=== PATIENT | female | born 1975 | race Caucasian/White ===

== ENCOUNTER 2020-07-09 16:39 | Outpatient (CLI) | payer BC, SELFPAY ==
--- NOTE | ~2020-07-09 | MM_ITS ---
EXAMINATION: MM screening [facility] BI w aida HISTORY: Screening mammogram TECHNIQUE: Craniocaudal and mediolateral oblique 3-D tomosynthesis images were obtained and synthetic 2-D images were generated. CAD analysis was submitted and interpreted. COMPARISON: 06/20/2019, 06/14/2018, 06/09/2017 BREAST PARENCHYMAL COMPOSITION: There are scattered areas of fibroglandular density. FINDINGS: RIGHT BREAST: Asymmetry is present in the middle third of the upper breast on the mediolateral obliqu e view. In addition, there are small subareolar masses. LEFT BREAST: There is no evidence of suspicious mass, calcification, or architectural distortion to s uggest malignancy. There has been no significant interval change. IMPRESSION: 1. Right breast findings as described above. 2. Additional mammographic views and possible breast ultrasound are recommended. BI-RADS Category 0: Incomplete: Needs additional imaging evaluation. Reviewed, dictated and finalized at location A. OPERATIONS MANAGER IMPRESSION: 1. Right breast findings as described above. 2. Additional mammographic views and possible breast ultrasound are recommended . BI-RADS Category 0: Incomplete: Needs additional imaging evaluation.
== END 2020-07-09 16:40 | disposition home or self-care (01) ==
LOC: ANHIMG 16:42
PROVIDERS: PCP Family Medicine; Visit Provider Obstetrics & Gynecology
DX: Z12.31 Encounter for screening mammogram for malignant neoplasm of breast (principal); R92.8 Other abnormal and inconclusive findings on diagnostic imaging of breast
CPT/HCPCS: 77063; 77067

== ENCOUNTER 2020-09-29 13:41 | Outpatient (CLI) | payer BC, SELFPAY ==
--- NOTE | ~2020-09-29 | MM_ITS ---
EXAMINATION: MM diagnostic mammo unilat RT HISTORY: Upper and middle third right breast mammographic asymmetry on screening MLO view of 07/09/20 20 TECHNIQUE: Additional 3-D tomosynthesis images of the right breast were performed and synthetic 2-D i mages were generated. CAD analysis was submitted and interpreted. COMPARISON: 07/09/2020bilateral digital screening mammogram FINDINGS: No reproducible mass or architectural distortion. No malignant calcification, skin thickeni ng or retraction. IMPRESSION: 1. No mammographic evidence of malignancy 2. Routine annual mammographic screening is recommended BI-RADS Category 1: Negative Reviewed, dictated and finalized at location A. SER SALES
== END 2020-09-29 13:42 | disposition home or self-care (01) ==
LOC: ANHIMG 13:42
PROVIDERS: PCP Family Medicine; Visit Provider Obstetrics & Gynecology
DX: R92.8 Other abnormal and inconclusive findings on diagnostic imaging of breast (principal)
CPT/HCPCS: 77065

== ENCOUNTER 2021-10-02 09:19 | Outpatient (CLI) | payer BC, SELFPAY ==
--- NOTE | ~2021-10-02 | MM_ITS ---
EXAMINATION: MM screening [place] BI w aida HISTORY: Screening TECHNIQUE: Craniocaudal and mediolateral oblique 3-D tomosynthesis images were obtained and synthetic 2-D images were generated. CAD analysis was submitted and interpreted. COMPARISON: Comparison to multiple prior studies sequentially, with oldest reviewed study dated 05/25. BREAST PARENCHYMAL COMPOSITION: Breast composition is almost entirely fatty FINDINGS: There is focal asymmetry superiorly on the right breast on MLO view. The left breast is sta ble without evidence for malignancy. IMPRESSION: 1. Focal asymmetry in the upper aspect of the right breast. 2. Additional mammographic views and possible breast ultrasound are recommended. BI-RADS Category 0: Incomplete: Needs additional imaging evaluation. Reviewed, dictated and finalized at location A. Y TINTER MAKER IMPRESSION: 1. Focal asymmetry in the upper aspect of the right breast. 2. Additional mammographic views and possible breast ultrasound are recommended . BI-RADS Category 0: Incomplete: Needs additional imaging evaluation.
== END 2021-10-02 09:20 | disposition home or self-care (01) ==
LOC: ANHIMG 09:21
PROVIDERS: PCP Family Medicine; Visit Provider Obstetrics & Gynecology
DX: Z12.31 Encounter for screening mammogram for malignant neoplasm of breast (principal); R92.8 Other abnormal and inconclusive findings on diagnostic imaging of breast
CPT/HCPCS: 77063; 77067

== ENCOUNTER 2021-10-22 12:14 | Outpatient (CLI) | payer BC, SELFPAY ==
--- NOTE | ~2021-10-22 | MM_ITS ---
EXAMINATION: MM diagnostic geo RT w aida HISTORY: Right breast asymmetry on screening mammogram TECHNIQUE: Additional 3-D tomosynthesis images of the right breast were performed and synthetic 2-D i mages were generated. CAD analysis was submitted and interpreted. COMPARISON: 10/02/2021,09/29/2020, 07/09/2020 FINDINGS: There is a return to baseline fibroglandular appearance with spot compression of the right breast in the area questioned on screening mammogram. IMPRESSION: 1. No mammographic evidence of malignancy. 2. Recommend routine screening mammography in one year. BI-RADS Category 1: Negative Reviewed, dictated and finalized at location A.
== END 2021-10-22 12:15 | disposition home or self-care (01) ==
PROVIDERS: PCP Family Medicine; Visit Provider Obstetrics & Gynecology
DX: R92.8 Other abnormal and inconclusive findings on diagnostic imaging of breast (principal); N64.89 Other specified disorders of breast
CPT/HCPCS: 77061; 77065; G0279

== ENCOUNTER 2024-09-10 12:31 | Emergency (ER) | payer OTHER, SELFPAY ==
--- NOTE | ~2024-09-10 | US_ITS ---
EXAMINATION: US transvaginal DATE: 09/10/2024 18:35 INDICATION: Lower abdominal pain, concern for torsion TECHNIQUE: Multiple transabdominal and endovaginal sonographic images of the pelvis were obtained. COMPARISON: 01/07/[address] abdomen pelvis 09/10/2024. FINDINGS: Uterus: 9.7 x 3.8 x 5.9 cm. Endometrial complex measures 3 mm. Right Ovary: 2.6 x 1.4 x 1.4 cm. Vascular flow is present. No adnexal mass Left Ovary: 3.0 x 1.2 x 2.3 cm. Vascular flow is present. No adnexal mass. There is no free fluid in the pelvis. IMPRESSION: Normal pelvic sonogram findings. Reviewed, dictated and finalized at location K. ING OPERATOR
--- NOTE | ~2024-09-10 | CT_ITS ---
EXAMINATION: CT abdomen pelvis w con DATE: 09/10/2024 15:56 INDICATION: Low abdominal pain. Nausea, vomiting, and diarrhea. TECHNIQUE: Computed tomography (CT) of the abdomen and pelvis was performed with 100 mL Omnipaque 350 intravenous contrast. Automated exposure control and iterative reconstruction technique were employe d. The dose-length product was 1503.41 mGy-cm. COMPARISON: CT abdomen and pelvis 01/05/2016 FINDINGS: The visualized portions of lung bases demonstrate mild atelectasis on the right. In the med ial basilar left lower lobe, there is a geographic area of cystic lung disease with reticular opaciti es and groundglass and airspace opacities. No pleural effusion. The heart size is normal. No pericard ial effusion. The liver, spleen, pancreas, adrenal glands, and right kidney are normal. There is a 5 mm cyst in left kidney. There are no dilated loops of bowel. There is liquid stool in the colon corre lating with the patient's symptom of diarrhea. The appendix is normal. There are no pathologically en larged lymph nodes. There is no free intraperitoneal fluid. There is moderate thoracic spondylosis an d mild lumbar spondylosis. IMPRESSION: 1. 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 The differential diagnosis includes sequestration and congenital cystic adenomatoid malformation. Reviewed, dictated and finalized at location A. MING PO[employer] SALESPERSON IMPRESSION: 1. 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 The differenti al diagnosis includes sequestration and congenital cystic adenomatoid malformat ion.
[2024-09-10 12:33] VITALS: BP 163/90; PULSE 90; RESP 15; TEMP 36.6; O2SAT 99
--- NOTE | 2024-09-10 14:01 | ED.ABDPAIN ---
HPI - Abdominal Pain General Chief Complaint: Abdominal Pain <GIANFRANCO Jordan Last Filed: 09/10/24 15:14> Stated Complaint: abd pain <GIANFRANCO Jordan Last Filed: 09/10/24 15:14> Time Seen by Provider: 09/10/24 14:01 <GIANFRANCO Jordan Last Filed: 09/10/24 15:14> Focused HPI: Patient is a 49 y/o female who presents to the ED with c/o lower abdominal pain. Patient reports having pain throughout her lower abdomen, worse in her left lower quadrant since this morning. States pain began somewhat suddenly around 10:00 a.m. States she feels as though her insides are going to fall out. Has not taken anything for pain. Reports N/V/D. Denies rectal bleeding, melena. Denies fevers. Denies cough/ cold sx's. States she has not been feeling well since last week. Was on her cycle and states cramping and bleeding were worse than usual. Notes she was cleaning her bathroom naked last week and passed a large blood clot onto the floor. States cycle has since ended. Denies any further abnormal bleeding. Is scheduled to see OBGYN next month. GENERAL: Well-appearing, well-nourished, and in no acute distress. HEAD: Normocephalic, atraumatic. CHEST: Clear to auscultation. ?No respiratory distress. HEART: Regular rate and rhythm.? ABD: Mild lower abdominal tenderness. No rebound. Normoactive BS. NEURO: ?Alert and oriented x3. Patient screened in triage and initial orders placed.? ?Additional care and disposition to be based upon?diagnostic testing and treatment. <GIANFRANCO Jordan Last Filed: 09/10/24 15:14> Source: patient <GIANFRANCO Jordan Last Filed: 09/10/24 15:14> Mode of arrival: ambulatory <GIANFRANCO Jordan Last Filed: 09/10/24 15:14> Limitations: no limitations <GIANFRANCO Jordan Last Filed: 09/10/24 15:14> History of Present Illness HPI narrative: I agree with the above HPI <Jermaine Cook MD - Last Filed: 09/10/24 21:27> Related Data Allergies/Adverse Reactions: Allergies Allergy/AdvReac Type Severity Reaction Status Date / Time clindamycin Allergy Hives Verified 09/10/24 12:38 <Page Horn PA-C - Last Filed: 09/10/24 15:14> Review of Systems Review of Systems: All systems reviewed & are unremarkable except as noted in HPI and below <Jermaine Cook MD - Last Filed: 09/10/24 21:27> PMFSH Family History Family History: Family History (System 06/11/20 @ 16:34 by Bridget Alan) Father Hypertension Family history of heart disease in male family member before age 55 Mother Hypertension Grandparent Hypertension Malignant neoplasm of prostate Family history of malignant neoplasm of breast Diabetes mellitus Sibling Family history of seizure disorder <Page Horn PA-C - Last Filed: 09/10/24 15:14> Social History Social History: Social History (System 06/11/20 @ 16:34 by Bridget Alan) Smoking status: Never smoker Alcohol intake: current <Page Horn PA-C - Last Filed: 09/10/24 15:14> Exam Narrative: APPEARANCE: Well appearing, no pain, no distress, well-nourished. HEAD: normocephalic, atraumatic. EYES: PERRLA/EOMI, conjunctivae clear. NOSE: Normal no drainage EARS:TMS clear with good light reflex. THROAT: Pharynx clear, no exudate. NECK: Supple. No adenopathy, no masses. RESPIRATORY: Airway patent, respirations nonlabored. Clear to auscultation bilaterally, no rales, rhonchi, wheezing. CARDIOVASCULAR: Regular rate and rhythm without murmurs rubs or gallops. ABDOMINAL: Diffuse lower abdominal tenderness to palpation MUSCULOSKELETAL: Moves all extremities. Strength/ROM intact, No edema, No calf tenderness. NEURO: Alert. Cranial nerves II through XII intact. Good gait. Good coordination SKIN: Warm, dry. Normal Color <Jermaine Cook MD - Last Filed: 09/10/24 21:27> Course Vital Signs Vital signs: Vital Signs Temperature 97.8 F 09/10/24 12:33 Pulse Rate 90 09/10/24 12:33 Respiratory Rate 15 09/10/24 12:33 Blood Pressure 163/90 H 09/10/24 12:33 Pulse Oximetry 99 09/10/24 12:33 Oxygen Delivery Room Air 09/10/24 12:33 Temperature 97.8 F 09/10/24 12:33 Pulse Rate 103 H 09/10/24 19:49 Respiratory Rate 16 09/10/24 19:49 Blood Pressure 133/86 09/10/24 19:49 Pulse Oximetry 98 09/10/24 19:49 Oxygen Delivery Room Air 09/10/24 12:33 <Page Horn PA-C - Last Filed: 09/10/24 15:14> Vital Signs Temperature 97.8 F 09/10/24 12:33 Pulse Rate 90 09/10/24 12:33 Respiratory Rate 15 09/10/24 12:33 Blood Pressure 163/90 H 09/10/24 12:33 Pulse Oximetry 99 09/10/24 12:33 Oxygen Delivery Room Air 09/10/24 12:33 Temperature 97.8 F 09/10/24 12:33 Pulse Rate 103 H 09/10/24 19:49 Respiratory Rate 16 09/10/24 19:49 Blood Pressure 133/86 09/10/24 19:49 Pulse Oximetry 98 09/10/24 19:49 Oxygen Delivery Room Air 09/10/24 12:33 <Jermaine Cook MD - Last Filed: 09/10/24 21:27> MDM - Abdominal Pain MDM Narrative Medical decision making narrative: MSE by OUSMANE in triage. <Page Horn PA-C - Last Filed: 09/10/24 15:14> MSE by OUSMANE in triage. 49-year-old female presented to the emergency department for evaluation for lower abdominal pain associated nausea vomiting diarrhea. Patient is currently afebrile with a leukocytosis of 11.2 and hemoglobin of 14.5. Patient has no acute abnormalities on her CMP with a negative lipase. UA was negative for infection. CT and pelvis did show evidence of a diarrheal illness, due to patient having specific left lower quadrant pain associated with her menstrual cycle ultrasound was ordered to rule out torsion and pelvic ultrasound was negative. Patient did feel improved after treatment IV fluids, antinausea medications and medications for pain control. Patient will be discharged home with nausea medication and instructions to follow a clear liquid diet. <Jermaine Cook MD - Last Filed: 09/10/24 21:27> Differential Diagnosis Differential diagnosis: Likely abdominal pain, acute appendicitis, constipation, diverticulitis, endometriosis, gastroenteritis, pancreatitis and small bowel obstruction <Jermaine Cook MD - Last Filed: 09/10/24 21:27> Lab Data Attestation: I reviewed the patient's lab results. <Jermaine Cook MD - Last Filed: 09/10/24 21:27> Result diagrams: 09/10/24 15:40 09/10/24 15:52 <Page Horn PA-C - Last Filed: 09/10/24 15:14> Labs: Lab Results 09/10/24 09/10/24 Range/Units 15:40 15:52 WBC 11.2 H (4.5-10.0) K/mm3 RBC 4.94 (4.2-5.4) M/mm3 Hgb 14.5 (12.0-15.0) g/dL Hct 43.2 (37.0-47.0) % MCV 87.4 (80-100) fl MCH 29.4 (26-34) pg MCHC 33.6 (32-36) g/dl RDW 14.0 (11.5-14.5) % Plt Count 280 (150-375) k/mm3 MPV 10.4 (7.4-10.4) fl Immature Gran % (Auto) 0.4 (0-0.5) % Neut % (Auto) 89.9 H (45.5-73.1) % Lymph % (Auto) 5.3 L (18.3-44.2) % Carbon % (Auto) 3.9 (2.6-8.5) % Eos % (Auto) 0.2 (0-4.4) % Baso % (Auto) 0.3 (0.2-1.2) % Lymph # (Auto) 0.59 L (0.9-3.2) K/mm3 Carbon # (Auto) 0.4 (0.1-0.6) K/mm3 Eos # (Auto) 0.0 (0-0.3) K/mm3 Baso # (Auto) 0.0 (0.0-0.1) K/mm3 Abs Immat Gran (auto) 0.04 H (0.00-0.031) K/mm3 Absolute Neuts (auto) 10.1 H (1.3-6.7) K/mm3 Absolute Nucleated RBC 0.000 (0.0-0.012) K/mm3 Nucleated RBC % 0.0 (0.0-0.2) % Sodium 137 (137-145) mmol/L Potassium 4.2 (3.4-5.0) mmol/L Chloride 102 (98-107) mmol/L Carbon Dioxide 25 (22-30) mmol/L Anion Gap 10 (4-12) mmol/L BUN 16 (7-17) mg/dL Creatinine 0.68 L 0.80 (0.7-1.0) mg/dL Estim Creat Clear Calc 108 93 ml/min Estimated GFR > 60 > 60 (59 - ) Glucose 137 H (65-110) mg/dL Calcium 9.6 (8.4-10.2) mg/dL Total Bilirubin 0.9 (0.2-1.3) mg/dL AST 22 (14-36) U/L ALT 20 (6-35) U/L Alkaline Phosphatase 109 (38-126) U/L Total Protein 8.0 (6.3-8.2) g/dL Albumin 4.1 (3.5-5.1) g/dL Lipase 38 (23-300) U/L Urine Color Yellow (Yellow) Urine Appearance Clear (Clear) Urine pH 5.5 (5.0-9.0) Ur Specific Newborn 1.026 (1.001-1.035) Urine Protein Negative (Negative) mg/dL Urine Glucose (UA) Negative (Negative) mg/dL Urine Ketones Trace H (Negative) mg/dL Ur Blood (Man) Negative (Negative) Urine Nitrate Negative (Negative) Urine Bilirubin Negative (Negative) Urine Urobilinogen 0.2 (<2.0) mg/dL Leukocyte Esterase Rfl Negative (Negative) YASSINE/UL POC Urine HCG, Qual Negative (Negative) <Page Horn PA-C - Last Filed: 09/10/24 15:14> Lab Results 09/10/24 09/10/24 Range/Units 15:40 15:52 WBC 11.2 H (4.5-10.0) K/mm3 RBC 4.94 (4.2-5.4) M/mm3 Hgb 14.5 (12.0-15.0) g/dL Hct 43.2 (37.0-47.0) % MCV 87.4 (80-100) fl MCH 29.4 (26-34) pg MCHC 33.6 (32-36) g/dl RDW 14.0 (11.5-14.5) % Plt Count 280 (150-375) k/mm3 MPV 10.4 (7.4-10.4) fl Immature Gran % (Auto) 0.4 (0-0.5) % Neut % (Auto) 89.9 H (45.5-73.1) % Lymph % (Auto) 5.3 L (18.3-44.2) % Carbon % (Auto) 3.9 (2.6-8.5) % Eos % (Auto) 0.2 (0-4.4) % Baso % (Auto) 0.3 (0.2-1.2) % Lymph # (Auto) 0.59 L (0.9-3.2) K/mm3 Carbon # (Auto) 0.4 (0.1-0.6) K/mm3 Eos # (Auto) 0.0 (0-0.3) K/mm3 Baso # (Auto) 0.0 (0.0-0.1) K/mm3 Abs Immat Gran (auto) 0.04 H (0.00-0.031) K/mm3 Absolute Neuts (auto) 10.1 H (1.3-6.7) K/mm3 Absolute Nucleated RBC 0.000 (0.0-0.012) K/mm3 Nucleated RBC % 0.0 (0.0-0.2) % Sodium 137 (137-145) mmol/L Potassium 4.2 (3.4-5.0) mmol/L Chloride 102 (98-107) mmol/L Carbon Dioxide 25 (22-30) mmol/L Anion Gap 10 (4-12) mmol/L BUN 16 (7-17) mg/dL Creatinine 0.68 L 0.80 (0.7-1.0) mg/dL Estim Creat Clear Calc 108 93 ml/min Estimated GFR > 60 > 60 (59 - ) Glucose 137 H (65-110) mg/dL Calcium 9.6 (8.4-10.2) mg/dL Total Bilirubin 0.9 (0.2-1.3) mg/dL AST 22 (14-36) U/L ALT 20 (6-35) U/L Alkaline Phosphatase 109 (38-126) U/L Total Protein 8.0 (6.3-8.2) g/dL Albumin 4.1 (3.5-5.1) g/dL Lipase 38 (23-300) U/L Urine Color Yellow (Yellow) Urine Appearance Clear (Clear) Urine pH 5.5 (5.0-9.0) Ur Specific Newborn 1.026 (1.001-1.035) Urine Protein Negative (Negative) mg/dL Urine Glucose (UA) Negative (Negative) mg/dL Urine Ketones Trace H (Negative) mg/dL Ur Blood (Man) Negative (Negative) Urine Nitrate Negative (Negative) Urine Bilirubin Negative (Negative) Urine Urobilinogen 0.2 (<2.0) mg/dL Leukocyte Esterase Rfl Negative (Negative) YASSINE/UL POC Urine HCG, Qual Negative (Negative) <Jermaine Cook MD - Last Filed: 09/10/24 21:27> Imaging Data Radiologist's impression: ITS Impressions Abdomen/Pelvis CT 09/10/24 15:58 IMPRESSION: 1. 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 The differential diagnosis includes sequestration and congenital cystic adenomatoid malformation. Transvaginal US 09/10/24 19:01 IMPRESSION: Normal pelvic sonogram findings. <Page Horn PA-C - Last Filed: 09/10/24 15:14> ITS Impressions Abdomen/Pelvis CT 09/10/24 15:58 IMPRESSION: 1. 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 The differential diagnosis includes sequestration and congenital cystic adenomatoid malformation. Transvaginal US 09/10/24 19:01 IMPRESSION: Normal pelvic sonogram findings. <Jermaine Cook MD - Last Filed: 09/10/24 21:27> Discharge Plan Discharge Clinical Impression: Abdominal pain <GIANFRANCO Jordan Last Filed: 09/10/24 15:14> Patient Disposition: Home, Self-Care <GIANFRANCO Jordan Last Filed: 09/10/24 15:14> Condition: Stable <GIANFRANCO Jordan Last Filed: 09/10/24 15:14> Instructions: Antibiotic Form, Clear Liquid Diet (ED), Abdominal Pain (ED) <GIANFRANCO Jordan Last Filed: 09/10/24 15:14> Additional Instructions: Tylenol and ibuprofen for pain control. Clear liquid diet the next 1-3 days. Zofran as needed for nausea control. Have close follow-up with primary care physician. If you have any worsening symptoms then please call or return to the emergency department. <GIANFRANCO Jordan Last Filed: 09/10/24 15:14> Patient Language: Kenyan <GIANFRANCO Jordan Last Filed: 09/10/24 15:14> Prescriptions: New ondansetron 4 mg tablet,disintegrating 4 mg PO Q8H PRN (Reason: nausea and vomiting) Qty: 14 0RF No Action norethindrone-e.estradiol-iron [June FE 08/13 (28)] 1 mg-20 mcg (21)/75 mg (7) tablet 1 tablet PO DAILY Qty: 28 2RF <GIANFRANCO Jordan Last Filed: 09/10/24 15:14> Follow-up/Referrals: Jensen,Elizabeth Pandya MD [Primary Care Provider] - <GIANFRANCO Jordan Last Filed: 09/10/24 15:14>
--- OUTSIDE RECORDS SUMMARY | 2024-09-10 14:54 | XMS_ITS | Clinical Summary ---
Author Organization [facility] Address [address] [place] [id number] Care Team Providers Care Licensed Final Expense Agents Name Role Phone Christian Marquez NP Primary Care Provider Allergies Active Allergy Reactions Criticality Noted Date Comments Clindamycin Hives 04/03/2024 Medications gabapentin (NEURONTIN) 100 MG capsule Take 1 capsule (100 mg total) by mouth nightly at bedtime. Active sertraline (ZOLOFT) 100 MG tablet Take 1.5 tablets (150 mg total) by mouth daily. Active loratadine (CLARITIN) 10 MG tablet Take 1 tablet (10 mg total) by mouth daily as needed. Active losartan-hydroC HLOROthiazide (HYZAAR) 100-25 MG tablet Take 1 tablet by mouth daily. Active metoprolol succinate ER (TOPROL-XL) 50 MG 24 hr tablet Take 1 tablet (50 mg total) by mouth daily. Active vitamin D3, cholecalciferol , 125 mcg capsule Take 1 capsule (125 mcg total) by mouth daily. Active Multiple Vitamin (MULTIVITAMIN ADULT OR) Active Cyanocobalamin (VITAMIN B-12 OR) Active Active Problems Problem Noted Date Diagnosed Date Essential hypertension 04/03/2024 Obstructive sleep apnea syndrome 04/03/2024 Overview (04/03/2024): on cpap Gastroesophageal reflux disease 09/11/2019 Family History Medical History Relation Comments Arthritis Father Heart Disease Father Arthritis Mother Diabetes Mother Hypertension Mother Relation Status Comments Father Mother Social History Tobacco Use Types Packs/Day Years Used Date Smoking Tobacco: Never Smokeless Tobacco: Never Tobacco Cessation:Counseling Given: No Alcohol Use Standard Drinks/Week Comments Not Currently 0 (1 standard drink = 0.6 oz pur e alcohol) PHQ-2 Answer Date Recorded Patient Health Questionnaire-2 Score 2 04/03/2024 Comments Unknown Sex and Gender Information Value Date Recorded Sex Assigned at Not on file Legal Sex Female 8:26 PM CDT Gender Identity Not on file Sexual Orientation Not on file Last Filed Vital Signs Vital Sign Reading Time Taken Comments Blood Pressure 134/71 04/03/2024 10:03 AM CDT Pulse 56 04/03/2024 10:03 AM CDT Temperature 36.8 C (98.2 F) 04/03/2024 10:03 AM CDT Respiratory Rate - - Oxygen Saturation 98% 04/03/2024 10: 03 AM CDT Inhaled Oxygen Concentration - - Weight 114.2 kg (251 lb 12.8 oz) 2023 10:03 AM CDT Height 165.1 cm (5' 5 ) 04/03/2024 10:0 3 AM CDT Body Mass Index 41.9 04/03/2024 10:03 AM CDT Plan of Treatment Health Maintenance Due Date Last Done Comments Cervical Cancer Screening Pap Smear (Age 30 to 64) Every 3 Years 1975 Colorectal Cancer Screening Colonoscopy (10 Years) 1975 Annual Physical 1978 Hepatitis C 1993 Hepatitis B Vaccines (1 of 3 - 19+ 3-dose series) 1994 Cervical Cancer Screening Pap with HPV Testing (Age 30 to 64) Every 5 Years 2005 Cervical Cancer Screening with HPV 2005 Mammogram Screening 2015 COVID-19 Vaccine ( season) 2024 10/13/2021, 05/14/2021, 04/23/2021 Influenza Adult (#1) 2024 05/19/2023, 05/13/2022, 06/03/2020, Additional history exists PHQ-2 (Physician [place]) 07/25/2024 04/03/2024 PHQ-2 (Physician [place]) 04/03/2025 04/03/2024 DTaP, Tdap and Td Vaccines (2 - Td or Tdap) 11/27/2033 11/28/2023 Meningococcal B Vaccine Aged Out No l onger eligible based on patient's age to complete this topic Meningococcal Vaccine Aged Out No yuliana adrianne eligible based on patient's age to complete this topic Pneumococcal Vaccine: Pediatrics (0 to 5 Years) and At-Risk Patients (6 to 64 Years) Aged Out No longer eligible based on patient's age to complete this topic RSV Immunizations Under 20 Months Aged Out No longer eligible based on patient's age to complete this topic Insurance [facility] Care Teams Licensed Final Expense Agents Relationship Specialty Start Date End Date Christian Marquez NP [address] [place] [id number] PCP - General Nurse Practitioner Family 01/30/24
--- OUTSIDE RECORDS SUMMARY | 2024-09-10 14:54 | XMS_ITS | Data Portability ---
Author Organization [facility] [employer], Main Office Address [address] [place] [address] Assessment No assessment recorded. Plan of Treatment Reminders Order Date Submit Date Provider Last Modified By Organization Details Last Modified Time Details Appointments Any 30 2024 02:45P Payton Prabhakar NP Not available Not available Not available Lab measles igg Ab, titer, serum 2023 [email or web address] [place] [address] (Lab), [address] [place], [address], 05/16/2024 08:04:34 rubella Ab, titer, serum [address] [place] [address] (Lab), [address] [place], [address], 05/16/2024 08:04:34 rubella igg Ab, titer, serum 2023 [email or web address] [place] [address] (Lab), [address] [place], [address], 05/16/2024 08:04:34 Referral None recorded. Procedures None recorded. Surgeries None recorded. Imaging None recorded. Medication Orders mupirocin 2 % topical ointment 2023 024 [facility], [address] [facility], [place], [address], 07/02/2024 16:07:41 metoprolo l tartrate 50 mg tablet 2023 024 [facility], [address] [facility], [place], [address], 02/28/2024 11:21:48 Patient TargetsNo targets recorded. Patient InstructionsNo instructions recorded. Reason for Referral None Reported. Results Created Date Observation Date Name Description Value Unit Range Abnormal Flag Note LastModifiedBy Organization Detail LastModifiedTime 02/01/20 24 02/01/2024 nerve condu ction study /EMG, upper extre mity (PROC ) No observ ation record ed. [email or web address] [facility] [address] , [place], [address], 03/06/2024 11:10:07 02/01/20 24 02/01/2024 nerve condu ction study /EMG, upper extre mity (PROC ) No observ ation record ed. [email or web address] [facility] [address] , [place], [address], 02/03/2024 17:03:14 Result Notes None recorded. Problems Name Problem SNOMED Code Status Onset Date Resolution Date Notes Provider Name and Address Organization Details Recorded Time Plantar fasciitis of left foot 4319093709831 9101 Active 2022 Not Available [facility] 3 11:25:25 Bronchiect asis 04086019 Active 2017 Not Available [facility] 3 11:25:25 Cellulitis 605607260 Active Not Available [facility] 3 11:25:25 Computed tomography result abnormal 505234798 Active Not Available [facility] 3 11:25:25 Pain in both feet 1248889010214 9102 Active 2022 Not Available [facility] 3 11:25:25 Fracture of ankle 18764324 Active Not Available [facility] 3 11:25:25 Abnormal weight gain 217809357 Active Not Available [facility] 3 11:25:25 Body mass index 30+ - obesity 647229131 Active 2018 Not Available [facility] 3 11:25:25 Dry skin 85164183 Active Not Available [facility] 3 11:25:25 Pneumoniti s 731587147 Active Not Available [facility] 3 11:25:25 Abdominal pain 37022670 Active Not Available [facility] 3 11:25:25 Gastroesop hageal reflux disease 752020450 Active 2019 Not Available [facility] 3 11:25:25 Ankle pain 467179500 Active 2020 Not Available [facility] 3 11:25:25 Paresthesi a of foot 954824719 Active 2022 Not Available [facility] 3 11:25:25 Restless legs 84573971 Active Not Available [facility] 3 11:25:25 Rosacea 622940538 Active Not Available [facility] 3 11:25:25 Body mass index 40+ - severely obese 473044617 Active 2019 Not Available [facility] 3 11:25:25 Obesity 962916372 Active Not Available [facility] 3 11:25:25 Disorder of urinary bladder 10442923 Active Not Available [facility] 3 11:25:25 Ganglion cyst 623897849 Active Not Available [facility] 3 11:25:25 Disturbanc e in mood 33845697 Active Not Available [facility] 3 11:25:25 Essential hypertensi on 45825589 Active Not Available [facility] 3 11:25:25 Sleep apnea 73964109 Active on cpap Not Available [facility] 3 11:25:25 Obstructiv e sleep apnea syndrome 80397350 Active Not Available [facility] 3 11:25:25 Cyst of ovary 27171949 Active 2016 Not Available [facility] 3 11:25:25 Neck pain 53074584 Active Not Available [facility] 3 11:25:25 Fatigue 15531666 Active 2019 Not Available [facility] 3 11:25:25 Neuropathy 583038268 Active 2022 Not Available [facility] 3 11:25:25 Prediabete s 563201838 Active 2022 Not Available [facility] 3 11:25:25 Dizziness 510599031 Active 2022 Elizabeth Styles MD [address], [address], [place], [address] , [facility] 3 14:03:55 Thyroid function tests abnormal 929612859 Active 2022 Elizabeth Styles MD [address], [address], [place], [address] , [facility] 3 08:15:53 Paresthesi a of upper limb 66562078 Active 2023 PONCHO Morgan [address], [address], [place], [address] , [facility] 4 11:24:16 Palpitatio ns 26330956 Active 2023 PONCHO Morgan [address], [address], [place], [address] , [facility] 4 11:32:23 Tachycardi a 4683176 Active 2023 PONCHO Huber [address], [address], [place], [address] , [facility] 4 11:19:39 Hypertensi ve disorder 21828106 Active 2023 PONCHO Huber [address], [address], [place], [address] , [facility] 4 11:20:50 Bilateral carpal tunnel syndrome 9891608180706 9101 Active 2023 PONCHO Morgan [address], [address], [place], [address] , [facility] 4 11:10:44 Ulcer of nose 82573775 Active 2023 PONCHO Huber [address] [place] [address], [facility] [address], [place], [address] , [facility] [employer] 4 16:02:34 Problem Notes None recorded. Procedures Surgical History Date Name Laterality Status Provider Name and Address Organization Details Recorded Time 09/30/19 21 Most Recent Mammogram completed Not Available [facility] 09/22/2022 00:57:08 05/05/20 20 Date of Last Pap Smear completed Not Available [facility] 09/22/2022 00:57:08 01/04/20 18 release of trigger finger completed Not Available [facility] 09/22/2022 00:57:11 06/21/20 17 Cholecystectomy completed Not Available [facility] 09/22/2022 00:57:11 Mastoidectomy completed Not Available [facility] 09/22/2022 00:57:11 tonsilectomy/adeno ids completed Not Available [facility] 09/22/2022 00:57:11 Ear Tubes completed Not Available [facility] 09/22/2022 00:57:11 Imaging Results Imaging Date Name Status LastModified by Organiz ation Details LastModified Time 02/01/2024 nerve conduction study/EMG, upper extremity (PROC) completed [facility] _[facility]_[address] , [place], [address], 03/06/2024 11:10:07 02/01/2024 nerve conduction study/EMG, upper extremity (PROC) completed [email or web address] [facility]_[address] [place], [address], 02/03/2024 17:03:14 Procedure Notes None recorded. Medical Equipment None Reported. Allergies Allergen ID Allergen Name Allergen Category Reaction Reaction Severity Criticality Documentation Date Start Date Code Code System Note Provider Name and Address Organization Details Recorded Time 1784 clindamyc in Not available hives Not available Not available 09/22/2022 2582 RxNorm Not Available [facility] 3 01:15:28 Medications Name Sig Start Date Stop Date Status Note LastModified by Organization Details LastModified Time Prescript ion - Renewal active Not Available Not Available Not Available cyclobenz aprine 10 mg tablet Take 1 tablet twice a day by oral route at bedtime. active Not Available Not Available No t Available amoxicill in 500 mg capsule Take 1 capsule twice a day by oral route for 5 days. active Not Available Not Available No t Available doxycycli ne hyclate 100 mg capsule Take 1 capsule every day by oral route. 11/16 completed Not Available Not Available Not Available ropinirol e 1 mg tablet Take 1 tablet every day by oral route for 30 days. active Not Available Not Available No t Available clindamyc in HCl 300 mg capsule Take 1 capsule 3 times a day by oral route for 7 days. active Not Available Not Available No t Available ibuprofen 800 mg tablet TAKE 1 TABLET BY MOUTH EVERY 8 HOURS WITH FOOD NEEDED active Not Available Not Available No t Available metoprolo l succinate ER 50 mg tablet,ex tended release 24 hr TAKE 1 TABLET BY MOUTH ONCE DAILY 07/02 completed Not Available Not Available Not Available hydrocodo ne 5 mg-acetam inophen 325 mg tablet TK 1 T PO Q 6 H PRN P 07/26 completed Not Available Not Available Not Available meloxicam 15 mg tablet TK 1 T PO QPM AT DINNER 11/15 completed Not Available Not Available Not Available lisinopri l 20 mg tablet Take 1 tablet every day by oral route. 10/13 completed Not Available Not Available Not Available prednison e 20 mg tablet Take 2 tablets every day by oral route for 5 days. active Not Available Not Available No t Available Tubersol 5 tub. unit/0.1 mL intraderm al injection solution 0.1 ml intrader mal x 1 02/27 completed pt dani well Not Available Not Available Not Available sertralin e 100 mg tablet TAKE 1 1/2 TABLETS BY MOUTH EVERY DAY 2024 active Not Available Not Available Not Avai lable atenolol 25 mg tablet TK 1/2 T PO QD 03/08 completed Not Available Not Available Not Available Diflucan 150 mg tablet Take 1 tablet every day by oral route. 05/13 completed Not Available Not Available Not Available metronida zole 500 mg tablet Take 1 tablet twice a day by oral route for 7 days. active Not Available Not Available No t Available phentermi ne 37.5 mg tablet TAKE 1 TABLET BY MOUTH ONCE DAILY active Not Available Not Available No t Available tramadol 50 mg tablet Take 1 tablet every 6 hours by oral route as needed. active Not Available Not Available No t Available Kenalog 40 mg/mL suspensio n for injection Take 1 mL by injectio n route for 1 day. 12/14 completed [facility] 50178820 28 Not Available Not Available Not Available meloxicam 7.5 mg tablet 06/25 completed Not Available Not Available Not Available losartan 100 mg-hydroc hlorothia zide 25 mg tablet TAKE 1 TABLET BY MOUTH ONCE DAILY active Not Available Not Available No t Available oxycodone -acetamin ophen 5 mg-325 mg tablet TK 1 T PO Q 4 H PRN FOR SEVERE PAIN 11/16 completed Not Available Not Available Not Available amoxicill in 875 mg tablet Take 1 tablet every 12 hours by oral route for 7 days. active Not Available Not Available No t Available Silvadene 1 % topical cream 06/25 completed Not Available Not Available Not Available betametha sone valerate 0.1 % topical cream APPLY TOPICALL Y AA OF VIGINA BID active Not Available Not Available No t Available benzonata te 100 mg capsule TK 2 CS PO Q 8 H PRN 04/24 completed Not Available Not Available Not Available cephalexi n 500 mg capsule TK ONE C PO BID FOR 7 DAYS active Not Available Not Available No t Available biotin 10,000 mcg capsule 12/08 completed Not Available Not Available Not Available triamcino lone acetonide 0.1 % topical ointment APPLY A THIN LAYER TO THE AFFECTED AREAS BY TOPICAL ROUTE BID active Not Available Not Available No t Available ropinirol e 0.5 mg tablet TAKE 1 TABLET BY MOUTH EVERY DAY active Not Available Not Available No t Available lisinopri l 10 mg tablet Take 1 tablet twice a day by oral route. 10/21 completed Not Available Not Available Not Available prednison e 50 mg tablet TK ONE T PO QD WITH A MEAL FOR 5 DAYS 06/03 completed Not Available Not Available Not Available metoprolo l tartrate 50 mg tablet Take 1 tablet by mouth twice daily active Not Available Not Available No t Available fluoxetin e 10 mg capsule TK 1 C PO QD 03/23 completed Not Available Not Available Not Available gabapenti n 300 mg capsule TK 1 C PO QD HS 04/15 completed Not Available Not Available Not Available diclofena c sodium 75 mg tablet,de layed release Take 1 tablet by mouth twice daily as needed active Not Available Not Available No t Available cephalexi n 500 mg tablet Take 1 tablet twice a day by oral route for 7 days. 10/19 completed Not Available Not Available Not Available hydrochlo rothiazid e 25 mg tablet TAKE 1 TABLET BY MOUTH ONCE DAILY 11/27 completed Not Available Not Available Not Available mupirocin 2 % topical ointment APPLY A SMALL AMOUNT TO THE AFFECTED AREA BY TOPICAL ROUTE 3 TIMES PER DAY active Not Available Not Available No t Available gabapenti n 100 mg capsule Take 1 capsule by mouth every morning and take 2 capsules by mouth every night at bedtime active Not Available Not Available No t Available metoprolo l succinate ER 25 mg tablet,ex tended release 24 hr TAKE 1 TABLET BY MOUTH ONCE DAILY 11/29 completed Not Available Not Available Not Available ibuprofen 600 mg tablet Take 1 tablet 3 times a day by oral route for 30 days. active Not Available Not Available No t Available methylpre dnisolone 4 mg tablets in a dose pack TK UTD 04/24 completed Not Available Not Available Not Available lisinopri l 40 mg tablet TAKE 1 TABLET BY MOUTH ONCE DAILY 11/27 completed Not Available Not Available Not Available ondansetr on 4 mg disintegr ating tablet 11/16 completed Not Available Not Available Not Available losartan 100 mg tablet Take 1 tablet every day by oral route. 07/02 completed Not Available Not Available Not Available fluticaso ne propionat e 50 mcg/actua tion nasal spray,melanie pension SHAKE LIQUID AND USE 1 SPRAY IN EACH NOSTRIL EVERY DAY 08/14 completed Not Available Not Available Not Available metformin ER 500 mg tablet,ex tended release 24 hr Take 2 tablets every day by oral route. 02/03 completed Not Available Not Available Not Available clotrimaz ole 1 % topical cream APPLY AA OF VAGINA BID UTD active Not Available Not Available No t Available atenolol 50 mg tablet TK SS T PO QD 03/31 completed Not Available Not Available Not Available naproxen 500 mg tablet 11/16 completed Not Available Not Available Not Available amoxicill in 875 mg-potass ium clavulana te 125 mg tablet TK 1 T PO Q 12 H FOR 10 DAYS 04/24 completed Not Available Not Available Not Available Allergy Relief (loratadi ne) 10 mg tablet TAKE 1 TABLET BY MOUTH ONCE DAILY NEEDED active Not Available Not Available No t Available Microgest in 08/13 (21) 1 mg-20 mcg tablet 10/21 completed Not Available Not Available Not Available nitrofura ntoin monohydra te/macroc rystals 100 mg capsule 04/28 completed Not Available Not Available Not Available metronida zole 1 % topical gel APPLY EXTERNAL LY TO THE AFFECTED AREA EVERY DAY 07/26 completed Not Available Not Available Not Available meloxicam active Not Available Not Keila ilable Not Available Antihista mine 2022 active Not Available Not Available Not Avai lable multivita min 2014 active Not Available Not Available Not Avai lable ProAir HFA 90 mcg/actua tion aerosol inhaler 08/14 completed Not Available Not Available Not Available Lo Loestrin Fe 1 mg-10 mcg (24)/10 mcg (2) tablet TAKE 1 TABLET BY MOUTH ONCE DAILY 05/11 completed Not Available Not Available Not Available Vitamin D2 2 per day 11/06 completed Not Available Not Available Not Available metronida zole 1 % topical gel with pump APPLY EXTERNAL LY TO THE AFFECTED AREA EVERY DAY 11/16 completed Not Available Not Available Not Available Denny Fe 08/13 (28) 1 mg-20 mcg (21)/75 mg (7) tablet TAKE 1 TABLET BY MOUTH ONCE DAILY 12/23 completed Not Available Not Available Not Available Virtussin AC 10 mg-100 mg/5 mL oral liquid TAKE 10 ML BY MOUTH EVERY 4 HOURS NEEDED FOR 4 DAYS 10/21 completed Not Available Not Available Not Available Vienva 0.1 mg-20 mcg tablet TK 1 T PO QD 07/26 completed Not Available Not Available Not Available Fluzone Quad (PF) 60 mcg (15 mcg x 4)/0.5 mL IM syringe ADM 0.5ML IM UTD 10/29 completed Not Available Not Available Not Available Paxlovid 300 mg (150 mg x 2)-100 mg tablets in a dose pack TAKE 3 TABLETS TOGETHER (TWO 150 MG NIRMATRE LVIR TABLETS AND ONE 100 MG RITONAVI R TABLET) BY MOUTH TWICE DAILY FOR 5 DAYS. active Not Available Not Available No t Available Vitals Date Recorded Body height Systolic blood pressure Diastolic blood pressure Systolic blood pressure Diastolic blood pressure Provider Name and Address Organization Details Last Updated DateTime 4 162.56 cm 160 mm[Hg] 110 mm[Hg] 160 mm[Hg] 118 mm[Hg] Kathrin Stewart RN [facility] [employer] [facility] 4 16:34:45 Date Recorded Body height Body mass index (BMI) Body weight Body temperature Heart rate Oxygen saturation Oxygen saturation in Arterial blood by Pulse oximetry Systolic blood pressure Diastolic blood pressure Provider Name and Address Organization Details Last Updated DateTime 4 162.56 cm 42.4 kg/m2 816595. 32 g 97.9 [degF] 115 /min 98 % 98 % 140 mm[Hg] 90 mm[Hg] Jose Witt RN [facility] [employer] [facility] 4 11:07:31 Date Recorded Body height Body mass index (BMI) Body weight Body temperature Heart rate Oxygen saturation Oxygen saturation in Arterial blood by Pulse oximetry Systolic blood pressure Diastolic blood pressure Provider Name and Address Organization Details Last Updated DateTime 4 162.56 cm 43.3 kg/m2 997154. 28 g 98 [degF] 91 /min 97 % 97 % 138 mm[Hg] 80 mm[Hg] Jose Witt RN [facility] [employer] [facility] 4 16:33:51 Date Recorded Body height Body mass index (BMI) Body weight Body temperature Heart rate Oxygen saturation Oxygen saturation in Arterial blood by Pulse oximetry Systolic blood pressure Diastolic blood pressure Provider Name and Address Organization Details Last Updated DateTime 4 162.56 cm 43.1 kg/m2 134344. 68 g 97.9 [degF] 88 /min 97 % 97 % 120 mm[Hg] 82 mm[Hg] Jose Witt RN [facility] [employer] [facility] 4 15:56:27 Date Recorded Body height Provider Name an d Address Organization Details Last Updated DateTime 07/31/2024 162.56 cm Juanita Lalor, RN [place] [facility] [place] [facility] 07/31/2024 09:08:28 Social History Question Answer Notes LastModified by Organizat ion Details LastModified Time Tobacco Smoking Status Never Smoker Not Available [facility] 09/22/2022 00:54:11 What Is Your Level Of Alcohol Consumption? Occasional [id number] Information not available 09/22/2022 If You Are , What Was Your Level Of Alcohol Consumption Prior To ? None [id number] Information not available 09/22/2022 What Is Your Level Of Caffeine Consumption? Occasional [id number] Information not available 09/22/2022 How Much Tobacco Do You Chew? None [id number] Information not available 09/22/2022 In The 14 Days Before Symptom Onset, Have You Had Close Contact With A Laboratory-confir med COVID-19 While That Case Was Ill? No [id number] Information not available 09/22/2022 In The 14 Days Before Symptom Onset, Have You Had Close Contact With A Person Who Is Under Investigation For COVID-19 While That Person Was Ill? No [id number] Information not available 09/22/2022 What Type Of Diet Are You Following? REGULAR [id number] Information not available 09/22/2022 Which Illicit Or Recreational Drugs Have You Used? No [id number] Information not available 09/22/2022 Do You Or Have You Ever Used E-cigarettes Or Vape? Never Used Electronic Cigarettes [id number] Information not available 09/22/2022 What Was The Date Of Your Most Recent Tobacco Screening? 09/13/2022 [id number] Information not available 09/22/2022 Have You Ever Been Counseled For Unhealthy Alcohol Use? No [id number] Information not available 09/22/2022 Do You Use Your Seat Belt Or Car Seat Routinely? Yes [id number] Information not available 09/22/2022 Do You Or Have You Ever Used Smokeless Tobacco? Never Used Smokeless Tobacco [id number].[id number] Information not available 09/22/2022 Do You Use Any Illicit Or Recreational Drugs? No [id number].[id number] Information not available 09/22/2022 Do You Use Sunscreen Routinely? Yes [id number] Information not available 09/22/2022 Has Tobacco Cessation Counseling Been Provided? No [id number] Information not available 09/22/2022 Do You Or Have You Ever Used Any Other Forms Of Tobacco Or Nicotine? No [id number] Information not available 09/22/2022 Sex: Unknown Functional Status Question Answer Note LastModified by Organizat ion Details LastModified Time What is your exercise level? Occasional [id number] Information not available 09/22/2022 Mental Status None recorded. Family History Relationship Description Onset Age of this Age Resolved Age Notes LastModified by Organization Details LastModified Time Father Heart disease [id number] Not available 09/22/2022 00:57:14 Father Kidney disease [id number] Not available 09/22/2022 00:57:14 Mother Hypertensive disorder [id number] Not available 09/22/2022 00:57:14 Mother Diabetes mellitus [id number] Not available 09/22/2022 00:57:14 Maternal Grandfather Coronary arterioscler osis [email or web address] Not available 2023 10:49:52 Maternal Grandfather Family history of stroke [email or web address] Not available 2023 10:49:52 Maternal Grandfather Family history of malignant neoplasm Not available 2023 10:49:52 Maternal Grandmother Malignant tumor of breast [email or web address] Not available 2023 10:49:52 Medical History Condition Response OBESITY Y ANXIETY DISORDER Y HYPERTENSION Y Gynecological History Statement/Question Response Date of Last Pap Smear 05/05/2020 Current Control Method BCPs Age at Menarche 12 Most Recent Mammogram 09/29/2020 Date of LMP 07/26/2022 Breast Problems no Obstetrics History GPAL:G 1 P 1 0 0 1 Type Value Full Term 1 Living 1 Total 1 Immunizations Vaccine Type Date Status Note Provider Nam e and Address Organization Details Recorded Time Influenza, split virus, quadrivalent, PF 3 completed Jose Witt RN null, [place] [facility] 05/19/2023 17:30:49 Influenza, split virus, trivalent, PF 3 completed Not Available [facility] 08/02/2023 03:00:02 COVID-19, mRNA, LNP-S, PF, 30 mcg/0.3 mL dose 1 completed Not Available [facility] 08/02/2023 03:00:02 influenza, unspecified formulation 7 completed Not Available [facility] 08/02/2023 03:00:02 Influenza, split virus, quadrivalent, PF 9 completed Not Available [facility] 08/02/2023 03:00:02 Influenza, split virus, quadrivalent, PF 8 completed Not Available [facility] 08/02/2023 03:00:02 Influenza, split virus, quadrivalent, PF 7 completed Not Available [facility] 08/02/2023 03:00:02 Influenza, split virus, quadrivalent, PF 5 completed Not Available [facility] 08/02/2023 03:00:02 Influenza, split virus, quadrivalent, preservative 6 completed Not Available [facility] 08/02/2023 03:00:02 Tdap 4 completed Kathrin Stewart RN null, [facility] [employer] [facility] 11/29/2023 09:10:56 MMR 4 completed Jose Witt RN null, [facility] [employer] [facility] 07/02/2024 17:03:36 MMR 5 completed Juanita Rodriguez RN null, [facility] [employer] [facility] 07/31/2024 09:05:07 Past Encounters Encounter ID Performer Location Encounter Start Date Encounter Closed Date Diagnosis/Indication Diagnosis SNOMED-CT Code Diagnosis ICD10 Code Diagnosis Note [id number] [facility] [address] [place] [address] 09/26/2020 00:00:00 09/26/2020 15:28:04 [id number] [facility] [address] [facility] [address] [place] [address] 10/13/2020 00:00:00 10/13/2020 15:05:33 [id number] [facility] [place] [address] [place] [address] 10/29/2020 00:00:00 10/29/2020 17:05:30 [id number] _[facility]_ DEFAULT_1 _1 , 11/06/2020 00:00:00 11/06/2020 18:28:06 [id number] _[facility]_ DEFAULT_1 _1 , 11/10/2020 00:00:00 11/11/2020 08:53:45 [id number] [facility] [place] [address] [place] [address] 11/11/2020 00:00:00 11/11/2020 15:23:18 [id number] [facility] [place] [address] [address] [place] [address] 02/10/2021 00:00:00 02/10/2021 15:23:29 [id number] _ATHENA_M IGRATION_ DEFAULT_1 _1 , 05/11/2021 00:00:00 05/11/2021 14:23:46 [id number] [facility] [place] [address] [place] [address] 05/13/2021 00:00:00 05/13/2021 11:48:32 [id number] [facility] [place] [address] [place] [address] 11/11/2021 00:00:00 11/11/2021 11:15:52 [id number] [facility] [place] [address] [place] [address] 02/03/2022 00:00:00 02/19/2022 12:28:50 [id number] [facility] [place] [address] [place] [address] 08/05/2022 00:00:00 08/23/2022 13:07:27 [id number] [facility] [address] [place] [address] 09/13/2022 00:00:00 09/13/2022 12:01:15 [id number] Robert Stevens DPM [facility] [place] [address] [place] [address] 11/15/2022 10:42:54 11/15/2022 11:49:34 Plantar fasciitis of left foot [id number] M72.2 Continue conservati ve therapyCon tinue stretching and icingEduca carmelita on supportive shoe gearOffloa dingRx custom orthoticsF ollow-up in 2 months Neuropathy [id number] G62 .9 unable to obtain testingcon tinue gabapentin follow-up with PCP if continues to be problemati c recommend neurology consult [id number] Elizabeth Styles MD [facility] Primary Care [facility] [address] [facility] [address] [place] [address] 11/22/2022 09:10:08 11/22/2022 09:44:01 Essential hypertension [id number] I10 in good control Prediabetes 340836553 R7 3.03 uncertain controlche ck labs [id number] Robert Stevens DPM [facility] [place] [address] [place] [address] 12/13/2022 11:23:24 12/13/2022 12:06:13 Plantar fasciitis of left foot [id number] M72.2 90% improvedCo ntinue conservati ve therapyCon tinue stretching and icingconti nue custom orthoticsR ecommend more supportive shoe gear such as new balance, has sketchersF ollow-up prn [id number] Elizabeth Styles MD [facility] Primary Care [facility] [address] [facility] [address] [place] [address] 02/22/2023 13:51:58 02/22/2023 14:19:02 Essential hypertension 16195671 I10 in good control Prediabetes 274150318 R7 3.03 uncertain controlche ck labs Dizziness 296604557 R42 R53.83 stay hydratedta ke care with position changesche ck labsif normal, consider adding bupropion [id number] Elizabeth Styles MD [facility] Primary Care [facility] [address] [facility] [address] [place] [address] 10/18/2023 08:29:27 10/18/2023 09:22:19 Essential hypertension 31273661 I10 in good control Prediabetes 181495270 R7 3.03 a1c is 5.8, improved but has had weight gainrechec k labs Neuropathy 466139527 G62 .9 check labs Dietary ma nagement surveillance 168099572 Z71.3 restart phentermin eDiscussed healthy diet/exerc iseReviewe d potential med s/e, d/c and be seen if any chest pain, sobreturn in 4 weeks for BP check [id number] Elizabeth Styles MD [facility] Primary Care [address] [place] [address] 11/15/2023 14:25:56 11/15/2023 16:12:45 [id number] Elizabeth Styles MD [facility] Primary Care [address] [place] [address] 11/24/2023 14:59:09 11/24/2023 16:19:45 [id number] Elizabeth Styles MD [facility] Primary Care [address] [place] [address] 11/28/2023 14:58:19 12/20/2023 15:31:10 [id number] PONCHO Morgan [facility] Care [address] [place] [address] 01/17/2024 10:48:02 01/17/2024 12:33:27 Paresthesia of upper limb 01134204 R20.2 numbness/t ingling noted to upper/lowe r extrem Essential hypertension 67922304 I10 bp 146/98, 75 some nolan Palpitations 06450317 R0 0.2 palpitatio ns noted a couple times/week , some heart fluttering currently taking phentermin e, encouraged to hold off for the time being to see if symptoms resolveshe declines holter monitor right now [id number] PONCHO Morgan [facility] [address] [place] [address] 02/03/2024 16:02:13 02/09/2024 04:02:17 [id number] PONCHO Huber [facility] Primary [address] [place] [address] 02/28/2024 10:55:47 02/28/2024 11:48:02 Tachycardia 6847545 R00.0 Will change Metoprolol as listed below and follow up in 1-2 weeks. Hypertensive disorder 38 430509 I10 Discussed monitoring BP at home and keeping a log.Patien t to contact office in 1 week with readings, if patient is unable to obtain BP cuff for home use she will come in for BP check.Disc ussed DASH diet and routine exercise. [id number] PONCHO Huber [address] [address] 05/02/2024 16:27:52 05/02/2024 17:27:50 History and physical examination, pre-employment 578214517 Z02.1 Will check labs as listed below.Teta nus and Tb are up to date. Hypertensive disorder 38 177949 I10 138/80.Doi ng well on current medication regimen.De nies headaches, vision changes.Di scussed DASH diet and routine exercise. Body mass index 40+ - severely obese 481012465 Z68.41 43.3Discus sed healthy diet and routine exercise. [id number] PONCHO Huber [facility] Care [address] [place] [address] 07/02/2024 15:46:25 07/02/2024 16:29:40 Ulcer of nose 97844207 J34.0 Will treat as listed below, patient will follow up as needed. Essential hypertension 81350660 I10 120/80.Doi ng well on current medication s, will refill as needed.Dis cussed DASH diet and routine exercise. Neuropathy 349682773 G62 .9 Will increase to 100mg QAM and then tk 2 cs po QPM, patient will contact office in a couple weeks with update. Active or passive immunization 392462226 Z23 1st dose administer ed [id number] dose due in at least 28 days [id number] PONCHO Huber [facility] [place] [facility] [address] [facility] [address] [place] [address] 07/31/2024 08:40:03 07/31/2024 09:11:50 Health Concerns Section Related Observation LastModified by Organization Detai ls LastModified Time None Recorded Concern Status LastModified by Organization Details LastModified Time None Recorded Advance Directives Directive None Recorded Payers Encounter Date Sequence Insurance Name Policy Number Policy Valle Covered Member ID Valle Member ID Guarantor Name 02/03/2024 1 [facility] [employer] Lacie Katana [id number] Lacie L Katana 02/28/2024 1 [facility] [employer] Lacie Katana [id number] Lacie L Katana 05/02/2024 1 [facility] [employer] Lacie Katana [id number] Lacie L Katana 07/02/2024 1 [employer] - OPEN ACCESS [id number] Lacie L Katana [id number] Lacie L Katana 07/31/2024 1 [employer] - OPEN ACCESS [id number] Lacie L Katana [id number] Lacie L Katana Notes Date Note Type Note Provider Name and Address Organization Details Recorded Time 02/28/2024 text/html Patient is a 48 year old female that presents to the office for follow up on hypertension. Patient reports she has been taking Losartan 100mg daily, Losartan 100mg/HCTZ 25mg, and Metoprolol ER 50mg daily for the last month. Patient has not been checking her BP at home due to not having a BP cuff. Patient denies NOLAN and dizziness. Patient denies all other medical concerns at this time. PONCHO Huber [address] [facility] [address], [place], [address], [facility] [employer] 02/28/2024 11:39:28 05/02/2024 text/html Patient is a 49 year old female that presents to the office for follow up and pre-employment physical. 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 Patient denies all other medical concerns at this time including chest pain and shortness of breath, nausea vomiting and diarrhea. PONCHO Huber [address] [facility] [address], [place], [address], [employer] [facility] [employer] [facility] 05/03/2024 10:31:04 07/02/2024 text/html Patient is a 49 year old female that presents to the office for follow up. Patient reports she is doing well on current medications. Patient reports she is has ulcer-like sores in her nose for the last 4-5 days, has been applying neosporin without relief of symptoms. Patient thinks it is due to not cleaning her CPAP often enough. Patient requesting MMR vaccine for work, will administer today. Patient needs annual Flu and Covid shot, will update at [employer]. PONCHO Huber [address], [facility] [address], [place], [address], [employer] 07/02/2024 16:53:52 OBGyn Episode No OBEpisode recorded.
[2024-09-10 15:19] VITALS: BP 135/84; PULSE 106; RESP 16; O2SAT 97
[2024-09-10] MEDS: SODIUM CHLORIDE 0.9% IV 1,000 ML 999 ML IV CONT (15:37)
[2024-09-10] MEDS: ONDANSETRON INJ 4 MG/2 ML VIAL IV PUSH (15:37)
[2024-09-10] MEDS: HYDROmorphone HCL INJ (*CRX) 1 MG/ML SYR 0.5 MG IV PUSH ×2 (15:38→19:04)
[2024-09-10 15:51] LABS: Basophils Percent Auto 0.3 % (0.2-1.2); Eosinophils Percent Auto 0.2 % (0-4.4); Hematocrit 43.2 % (37.0-47.0); Hemoglobin 14.5 g/dL (12.0-15.0); Immature Granulocyte Absolute 0.04 K/mm3 (0.00-0.031); Immature Granulocyte Percent A 0.4 % (0-0.5); Lymphocytes Absolute Auto 0.59 K/mm3 (0.9-3.2); Lymphocytes Percent Auto 5.3 % (18.3-44.2); Mean Corpuscular HGB Conc 33.6 g/dl (32-36); Mean Corpuscular Hemoglobin 29.4 pg (26-34); Mean Corpuscular Volume 87.4 fl (80-100); Mean Platelet Volume 10.4 fl (7.4-10.4); Monocytes Absolute Auto 0.4 K/mm3 (0.1-0.6); Monocytes Percent Auto 3.9 % (2.6-8.5); Neutrophils Absolute Auto 10.1 K/mm3 (1.3-6.7); Neutrophils Percent Auto 89.9 % (45.5-73.1); Platelet Count Result 280 k/mm3 (150-375); Red Blood Count 4.94 M/mm3 (4.2-5.4); White Blood Count 11.2 K/mm3 (4.5-10.0)
[2024-09-10 15:52] LABS: Add Urine Microscopic? NO; Appearance Urine Clear (Clear); Bilirubin Urine Negative (Negative); Blood Urine Negative (Negative); Color Urine Yellow (Yellow); Glucose Urine UA Negative (Negative); Ketones Urine Trace mg/dL (Negative); Leukocyte Esterase Ur Negative LEU/UL (Negative); Nitrate Urine Negative (Negative); Protein Urine Negative (Negative); Specific Grav Ur 1.026 (1.001-1.035); Urobilinogen Urine 0.2 mg/dL (<2.0); pH Urine 5.5 (5.0-9.0)
[2024-09-10 15:55] LABS: Estimated CRCL calculation 93 ml/min; Estimated Glomerular Filt Rate > 60
[2024-09-10 15:56] LABS: BEDSIDEPREGUCG Negative (Negative)
[2024-09-10 17:13] LABS: Alanine Aminotransferase 20 U/L (6-35); Albumin Level 4.1 g/dL (3.5-5.1); Alkaline Phosphatase 109 U/L (38-126); Anion Gap 10 mmol/L (4-12); Aspartate Amino Transferase 22 U/L (14-36); Bilirubin,Total 0.9 mg/dL (0.2-1.3); Blood Urea Nitrogen 16 mg/dL (7-17); Calcium 9.6 mg/dL (8.4-10.2); Carbon Dioxide 25 mmol/L (22-30); Chloride 102 mmol/L (98-107); Estimated CRCL calculation 108 ml/min; Estimated Glomerular Filt Rate > 60; Glucose 137 mg/dL (65-110); Lipase 38 U/L (23-300); Potassium 4.2 mmol/L (3.4-5.0); Sodium 137 mmol/L (137-145)
[2024-09-10 17:17] VITALS: BP 145/78; PULSE 85; RESP 16; O2SAT 98
--- OUTSIDE RECORDS SUMMARY | 2024-09-10 18:51 | XMS_ITS | Clinical Summary ---
Author Organization [facility] Address [address] [place] [address] Care Team Providers Care Channel Director Name Role Phone Christian Marquez NP Primary Care Provider [phone] Allergies Active Allergy Reactions Criticality Noted Date [...] 05/13/2022, 06/03/2020, Additional history exists PHQ-2 (Physician [employer]) 07/25/2024 04/03/2024 PHQ-2 (Physician [employer]) 04/03/2025 04/03/2024 DTaP, Tdap and Td Vaccines [...] patient's age to complete this topic Insurance [facility] Care Teams Channel Director Relationship Specialty Start Date End Date Christian Marquez NP [address] [place] [address] PCP - General Nurse Practitioner Family 01/30/24
--- NOTE | 2024-09-10 18:54 | PC.NURSE ---
Pt. c/o 5/10 lower abdominal pain and nausea. Pt. requesting pharmacological intervention. MD Cook notified.
[2024-09-10 18:59] VITALS: BP 139/93; PULSE 100; RESP 22; O2SAT 98
[2024-09-10] MEDS: METOCLOPRAMIDE HCL INJ 10 MG/2 ML VIAL IV PUSH (19:04)
[2024-09-10 19:49] VITALS: BP 133/86; PULSE 103; RESP 16; O2SAT 98
== END 2024-09-10 19:52 | disposition home or self-care (01) ==
PROVIDERS: Physician Assistant; Emergency Provider Emergency Medicine; PCP Family Medicine
DX: R10.32 Left lower quadrant pain (principal); J98.4 Other disorders of lung
CPT/HCPCS: 36415; 74177; 76830; 80053; 81003; 81025; 83690; 85025; 96361; 96374; 96375; 96376; 99284; J1171; J2405; J2765; J7030; Q9967

== ENCOUNTER 2024-09-14 08:08 | Emergency (ER) | payer OTHER, SELFPAY ==
--- NOTE | ~2024-09-14 | CT_ITS ---
EXAMINATION: CT abd pelvis lumbar wo con DATE: 09/14/2024 09:39 INDICATION: TECHNIQUE: Computed tomography (CT) of the abdomen, pelvis and lumbar spine was performed without int ravenous contrast. Automated exposure control and iterative reconstruction technique were employed. T he dose-length product was 1596.43 mGy-cm. COMPARISON: CT abdomen and pelvis dated 09/10/2024 FINDINGS: Again seen is a region of prominent cystic lung disease with intervening septal thickening and small areas of consolidation at the posterior basilar segment of the left lower lobe. Minimal dependent ate lectasis in the right lower lobe. Heart size is normal. No pericardial or pleural effusion. Gallbladd er is nonvisualized and likely stress reaction. Liver, spleen, pancreas, bilateral adrenal glands and kidneys are normal. Normal appendix. No abnormal bowel wall thickening or obstruction. Bladder, ante verted uterus and bilateral adnexa are unremarkable. No free intraperitoneal gas or fluid. No patholo gically enlarged small fat-containing umbilical hernia. lymphadenopathy. Moderate bilateral sacroiliac osteoarthritis. Moderate lower thoracic spondylosis with chronic mild a nterior wedging at T11. Lumbar vertebral body heights are normal no fracture there is mild disc heigh t loss at T12-L1 and L2-L3 through L5-S1. Disc bulges at L2-L3 through L5-S1 contributes mild central canal stenosis at L2-L3 and L3-L4. There is mild to moderate multilevel bilateral lumbar facet osteo arthritis. There is moderate right-sided and mild left-sided neural from stenosis at L3-L4. Additiona l mild neural foraminal stenosis bilaterally at L2-L3 and on the left at L5-S1. IMPRESSION: 1. No acute intra-abdominal/pelvic process. 2. Moderate lower thoracic and mild lumbar spondylosis with no acute osseous abnormality. 3. 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 Differential would include sequestration and congenital cystic adenomatoid malformation. Reviewed, dictated and finalized at location A. [facility]TIST IMPRESSION: 1. No acute intra-abdominal/pelvic process. 2. Moderate lower thoracic and mild lumbar spondylosis with no acute osseous ab normality. 3. 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 Differential would include sequestration and congen ital cystic adenomatoid malformation.
[2024-09-14 08:15] VITALS: BP 163/88; PULSE 98; RESP 16; TEMP 36.2; O2SAT 97
--- OUTSIDE RECORDS SUMMARY | 2024-09-14 08:17 | XMS_ITS | Data Portability ---
Author Organization [facility], Main Office Address [address] [place] [address] Assessment No assessment recorded. Plan of Treatment Reminders Order Date Submit Date Provider Last Modified By Organization Details Last Modified Time Details Appointments Any 30 2024 02:45P Payton Prabhakar NP Not available Not available Not available Lab measles igg Ab, titer, serum 2023 [email or web address] [place] [address] (Lab), [address] [place], [address], 05/16/2024 08:04:34 rubella Ab, titer, serum 2023 [email or web address] [place] [address] (Lab), [address] [place], [address], 05/16/2024 08:04:34 rubella igg Ab, titer, serum 2023 [email or web address] [place] [address] (Lab), [address] [place], [address], 05/16/2024 08:04:34 Referral None recorded. Procedures None recorded. Surgeries None recorded. Imaging None recorded. Medication Orders mupirocin 2 % topical ointment 2023 024 [facility]61, [address] [facility], [place], [address], 07/02/2024 16:07:41 metoprolo l tartrate 50 mg tablet 2023 024 [facility] [address], [address] [facility], [place], [address], 02/28/2024 11:21:48 Patient TargetsNo targets recorded. Patient InstructionsNo instructions recorded. Reason for Referral None Reported. Results Created Date Observation Date Name Description Value Unit Range Abnormal Flag Note LastModifiedBy Organization Detail LastModifiedTime 02/01/20 24 02/01/2024 nerve condu ction study /EMG, upper extre mity (PROC ) No observ ation record ed. [email or web address] [facility] , [place], [address], 03/06/2024 11:10:07 02/01/20 24 02/01/2024 nerve condu ction study /EMG, upper extre mity (PROC ) No observ ation record ed. [email or web address] [facility] , [place], [address], 02/03/2024 17:03:14 09/10/19 25 09/10/2024 imagi ng/di agnos tic resul t No observ ation record ed. [address] [facility], [place], [address], 09/10/2024 17:06:10 09/10/19 25 09/10/2024 imagi ng/di agnos tic resul t No observ ation record ed. [address] [address], [place], [address], 09/10/2024 20:07:58 Result Notes None recorded. Problems Name Problem SNOMED Code Status Onset Date Resolution Date Notes Provider Name and Address Organization Details Recorded Time Plantar fasciitis of left foot 0742995319764 9101 Active 2022 Not Available [facility], [facility] 3 11:25:25 Bronchiect asis 12401387 Active 2017 Not Available [facility] 3 11:25:25 Cellulitis 488481786 Active Not Available [facility] 3 11:25:25 Computed tomography result abnormal 994667641 Active Not Available [facility] 3 11:25:25 Pain in both feet 1639133086669 9102 Active 2022 Not Available [facility] 3 11:25:25 Fracture of ankle 09547556 Active Not Available [facility] 3 11:25:25 Abnormal weight gain 235877181 Active Not Available [facility] 3 11:25:25 Body mass index 30+ - obesity 229423637 Active 2018 Not Available [facility] 3 11:25:25 Dry skin 49540712 Active Not Available [facility], [facility] 3 11:25:25 Pneumoniti s 544537260 Active Not Available [facility], [facility] 3 11:25:25 Abdominal pain 51363845 Active Not Available [facility], [facility] 3 11:25:25 Gastroesop hageal reflux disease 662312858 Active 2019 Not Available [facility] 3 11:25:25 Ankle pain 559940470 Active 2020 Not Available [facility] 3 11:25:25 Paresthesi a of foot 182527239 Active 2022 Not Available [facility] 3 11:25:25 Restless legs 68845561 Active Not Available [facility] 3 11:25:25 Rosacea 119076058 Active Not Available [facility] 3 11:25:25 Body mass index 40+ - severely obese 010999077 Active 2019 Not Available [facility] 3 11:25:25 Obesity 709133238 Active Not Available [facility] 3 11:25:25 Disorder of urinary bladder 58061292 Active Not Available [facility] 3 11:25:25 Ganglion cyst 868467349 Active Not Available [facility] 3 11:25:25 Disturbanc e in mood 03997223 Active Not Available [facility] 3 11:25:25 Essential hypertensi on 52574597 Active Not Available [facility] 3 11:25:25 Sleep apnea 55079265 Active on cpap Not Available [facility] 3 11:25:25 Obstructiv e sleep apnea syndrome 19367667 Active Not Available [facility] 3 11:25:25 Cyst of ovary 77585532 Active 2016 Not Available [facility] 3 11:25:25 Neck pain 20583390 Active Not Available [facility] 3 11:25:25 Fatigue 01626688 Active 2019 Not Available [facility] 3 11:25:25 Neuropathy 337370366 Active 2022 Not Available [facility] 3 11:25:25 Prediabete s 169838021 Active 2022 Not Available [facility] 3 11:25:25 Dizziness 700780602 Active 2022 Elizabeth Styles MD [address] [place] [address], [address] , [facility] 3 14:03:55 Thyroid function tests abnormal 062600017 Active 2022 Elizabeth Styles MD [address], [address], [place], [address] , [facility] 3 08:15:53 Paresthesi a of upper limb 31151366 Active 2023 PONCHO Morgan [address] [place], [address] , [facility] 4 11:24:16 Palpitatio ns 01612299 Active 2023 PONCHO Morgan [address] [place] [address], [place], [address] , [facility] 4 11:32:23 Tachycardi a 9398873 Active 2023 PONCHO Huber [address], [place], [address] , [employer] 4 11:19:39 Hypertensi ve disorder 64649207 Active 2023 PONCHO Huber [address], [place] [address] [address], [place], [address] , [facility] [employer] [facility] [employer] [facility] 4 11:20:50 Bilateral carpal tunnel syndrome 0989520158570 9101 Active 2023 PONCHO Morgan [address] [facility], [place] [address] [address], [place], [address] , [employer] [facility] [employer] [facility] 4 11:10:44 Ulcer of nose 58496342 Active 2023 PONCHO Huber [address], [place] [address], [place], [address] , [employer] [facility] [employer] 4 16:02:34 Problem Notes None recorded. Procedures Surgical History Date Name Laterality Status Provider Name and Address Organization Details Recorded Time 09/30/19 21 Most Recent Mammogram completed Not Available [facility] 09/22/2022 00:57:08 05/05/20 20 Date of Last Pap Smear completed Not Available [facility] 09/22/2022 00:57:08 01/04/20 18 release of trigger finger completed Not Available [facility] 09/22/2022 00:57:11 06/21/20 17 Cholecystectomy completed Not Available [facility] 09/22/2022 00:57:11 Mastoidectomy completed Not Available [facility] 09/22/2022 00:57:11 tonsilectomy/adeno ids completed Not Available [facility] 09/22/2022 00:57:11 Ear Tubes completed Not Available [facility] 09/22/2022 00:57:11 Imaging Results Imaging Date Name Status LastModified by Organiz [facility] Details LastModified Time 02/01/2024 nerve conduction study/EMG, upper extremity (PROC) completed [email or web address] [facility] [address] , [place], [address], 03/06/2024 11:10:07 02/01/2024 nerve conduction study/EMG, upper extremity (PROC) completed [email or web address] [facility] [address] , [place], [address], 02/03/2024 17:03:14 09/10/2024 imaging/diagnos tic result active [address], [place], [address], 09/10/2024 17:06:10 09/10/2024 imaging/diagnos tic result active [id number] [facility] [address], [place], [address], 09/10/2024 20:07:58 Procedure Notes None recorded. Medical Equipment None Reported. Allergies Allergen ID Allergen Name Allergen Category Reaction Reaction Severity Criticality Documentation Date Start Date Code Code System Note Provider Name and Address Organization Details Recorded Time 1784 clindamyc in Not available hives Not available Not available 09/22/2022 2582 RxNorm Not Available [facility] 01:15:28 Medications Name Sig Start Date Stop [...] n route for 1 day. 12/14 completed [facility] 19010342 28 Not Available Not Available Not Available [...] 160 mm[Hg] 118 mm[Hg] Kathrin Stewart RN [facility] [employer] 4 16:34:45 Date Recorded Body height Body mass index (BMI) Body weight Body temperature Heart rate Oxygen saturation Oxygen saturation in Arterial blood by Pulse oximetry Systolic blood pressure Diastolic blood pressure Provider Name and Address Organization Details Last Updated DateTime 4 162.56 cm 42.4 kg/m2 923832. 32 g 97.9 [degF] 115 /min 98 % 98 % 140 mm[Hg] 90 mm[Hg] Jose Witt RN [facility] [employer] 4 11:07:31 Date Recorded Body height Body mass index (BMI) Body weight Body temperature Heart rate Oxygen saturation Oxygen saturation in Arterial blood by Pulse oximetry Systolic blood pressure Diastolic blood pressure Provider Name and Address Organization Details Last Updated DateTime 4 162.56 cm 43.3 kg/m2 778212. 28 g 98 [degF] 91 /min 97 % 97 % 138 mm[Hg] 80 mm[Hg] Jose Witt RN [facility] [employer] 4 16:33:51 Date Recorded Body height Body mass index (BMI) Body weight Body temperature Heart rate Oxygen saturation Oxygen saturation in Arterial blood by Pulse oximetry Systolic blood pressure Diastolic blood pressure Provider Name and Address Organization Details Last Updated DateTime 4 162.56 cm 43.1 kg/m2 114331. 68 g 97.9 [degF] 88 /min 97 % 97 % 120 mm[Hg] 82 mm[Hg] Jose Witt RN [facility] [employer] 4 15:56:27 Date Recorded Body height Provider Name an d Address Organization Details Last Updated DateTime 07/31/2024 162.56 cm Juanita Rodriguez RN [facility] [employer] 07/31/2024 09:08:28 Social History Question Answer Notes LastModified by Organizat ion Details LastModified Time Tobacco Smoking Status Never Smoker Not Available [employer] 09/22/2022 00:54:11 What Is Your Level Of Alcohol Consumption? Occasional [id number] Information not available 09/22/2022 If You Are , What Was Your Level Of Alcohol Consumption Prior To ? None MIGRATION.[id number] 7376 Information not available 09/22/2022 What Is Your Level Of Caffeine Consumption? Occasional MIGRATION.759551 4436 Information not available 09/22/2022 How Much Tobacco Do You Chew? None MIGRATION.297456 1334 Information not available 09/22/2022 In The 14 Days Before Symptom Onset, Have You Had Close Contact With A Laboratory-confir med COVID-19 While That Case Was Ill? No MIGRATION.638876 5332 Information not available 09/22/2022 In The 14 Days Before Symptom Onset, Have You Had Close Contact With A Person Who Is Under Investigation For COVID-19 While That Person Was Ill? No MIGRATION.904569 8344 Information not available 09/22/2022 What Type Of Diet Are You Following? REGULAR MIGRATION.113145 9758 Information not available 09/22/2022 Which Illicit Or Recreational Drugs Have You Used? No MIGRATION.786631 8246 Information not available 09/22/2022 Do You Or Have You Ever Used E-cigarettes Or Vape? Never Used Electronic Cigarettes MIGRATION.756954 7992 Information not available 09/22/2022 What Was The Date Of Your Most Recent Tobacco Screening? 09/13/2022 MIGRATION.986170 1431 Information not available 09/22/2022 Have You Ever Been Counseled For Unhealthy Alcohol Use? No MIGRATION.746741 1850 Information not available 09/22/2022 Do You Use Your Seat Belt Or Car Seat Routinely? Yes MIGRATION.694645 3527 Information not available 09/22/2022 Do You Or Have You Ever Used Smokeless Tobacco? Never Used Smokeless Tobacco MIGRATION.476311 7246 Information not available 09/22/2022 Do You Use Any Illicit Or Recreational Drugs? No MIGRATION.105322 2999 Information not available 09/22/2022 Do You Use Sunscreen Routinely? Yes MIGRATION.987488 6949 Information not available 09/22/2022 Has Tobacco Cessation Counseling Been Provided? No MIGRATION.672921 8782 Information not available 09/22/2022 Do You Or Have You Ever Used Any Other Forms Of Tobacco Or Nicotine? No MIGRATION.721809 7080 Information not available 09/22/2022 Sex: Unknown Functional Status Question Answer Note LastModified by Organizat ion Details LastModified Time What is your exercise level? Occasional [id number].[id number] 26 Information not available 09/22/2022 Mental Status None recorded. Family History Relationship Description Onset Age of this Age Resolved Age Notes LastModified by Organization Details LastModified Time Father Heart disease [id number].218 [id number] Not available 09/22/2022 00:57:14 Father Kidney disease MIGRATION.716 [id number] Not available 09/22/2022 00:57:14 Mother Hypertensive disorder MIGRATION.764 [id number] Not available 09/22/2022 00:57:14 Mother Diabetes mellitus MIGRATION.667 [id number] Not available 09/22/2022 00:57:14 Maternal Grandfather Coronary arterioscler osis [email or web address] Not available 2023 10:49:52 Maternal Grandfather Family history of stroke [email or web address] Not available 2023 10:49:52 Maternal Grandfather Family history of malignant neoplasm [email or web address] Not available 2023 10:49:52 Maternal Grandmother Malignant tumor of breast Not available 2023 10:49:52 Medical History Condition Response HYPERTENSION Y OBESITY Y ANXIETY DISORDER Y Gynecological History Statement/Question Response Date of [...] Influenza, split virus, quadrivalent, PF 3 completed ROQUE Guzman, [facility] 05/19/2023 17:30:49 Influenza, split virus, trivalent, PF 3 completed Not Available [facility] 08/02/2023 03:00:02 COVID-19, mRNA, LNP-S, PF, 30 mcg/0.3 mL dose 1 completed Not Available [facility] 08/02/2023 03:00:02 influenza, unspecified formulation 7 completed Not Available [facility] 08/02/2023 03:00:02 Influenza, split virus, quadrivalent, PF 9 completed Not Available [facility] 08/02/2023 03:00:02 Influenza, split virus, quadrivalent, PF 8 completed Not Available [facility] 08/02/2023 03:00:02 Influenza, split virus, quadrivalent, PF 7 completed Not Available [facility] 08/02/2023 03:00:02 Influenza, split virus, quadrivalent, PF 5 completed Not Available [facility] 08/02/2023 03:00:02 Influenza, split virus, quadrivalent, preservative 6 completed Not Available [facility] 08/02/2023 03:00:02 Tdap 4 completed ROQUE Barlow, [facility] 11/29/2023 09:10:56 MMR 12/09/202 4 completed Jose Witt RN null, [place] [employer] [facility] 07/02/2024 17:03:36 MMR 5 completed Juanita Rodriguez RN null, [place] [employer] [facility] 07/31/2024 09:05:07 Past Encounters Encounter ID Performer Location Encounter Start Date Encounter Closed Date Diagnosis/Indication Diagnosis SNOMED-CT Code Diagnosis ICD10 Code Diagnosis Note [id number] [facility] [place] [address] [facility] [address] [place] [address] 09/26/2020 00:00:00 09/26/2020 15:28:04 [id number] [facility] [address] [facility] [address] [place] [address] 10/13/2020 00:00:00 10/13/2020 15:05:33 [id number] [facility] [place] [address] [place] [address] 10/29/2020 00:00:00 10/29/2020 17:05:30 [id number] _ATHENA_M IGRATION_ DEFAULT_1 _1 , 11/06/2020 00:00:00 11/06/2020 18:28:06 [id number] _[facility]HENA_M IGRATION_ DEFAULT_1 _1 , 11/10/2020 00:00:00 11/11/2020 08:53:45 [id number] [facility] [place] [address] [facility] [address] [place] [address] 11/11/2020 00:00:00 11/11/2020 15:23:18 [id number] [facility] [place] [address] [facility] [address] [place] [address] 02/10/2021 00:00:00 02/10/2021 15:23:29 [id number] _ATHENA_M IGRATION_ DEFAULT_1 _1 , 05/11/2021 00:00:00 05/11/2021 14:23:46 [id number] [facility] [place] [address] [facility] [address] [place] [address] 05/13/2021 00:00:00 05/13/2021 11:48:32 [id number] [facility] [place] [address] [place], [place] [address] 11/11/2021 00:00:00 11/11/2021 11:15:52 [id number] [facility] [place] [address] [place], [place] [address] 02/03/2022 00:00:00 02/19/2022 12:28:50 [id number] [facility] [place] [address] [place], [place] [address] 08/05/2022 00:00:00 08/23/2022 13:07:27 [id number] [facility] [place] [address] [place] [address] 09/13/2022 00:00:00 09/13/2022 12:01:15 [id number] Robert Stevens DPM [facility] [place] [address] [place] [address] 11/15/2022 10:42:54 11/15/2022 11:49:34 Plantar fasciitis of left foot 1844477676 6745628 M72.2 Continue conservati ve therapyCon tinue stretching and icingEduca carmelita on supportive shoe gearOffloa dingRx custom orthoticsF ollow-up in 2 months Neuropathy 653069100 G62 .9 unable to obtain testingcon tinue gabapentin follow-up with PCP if continues to be problemati c recommend neurology consult [id number] Elizabeth Styles MD [facility] [place] [address] [facility] [address] [place], [place] [address] 11/22/2022 09:10:08 11/22/2022 09:44:01 Essential hypertension 47327395 I10 in good control Prediabetes 722856445 R7 3.03 uncertain controlche ck labs [id number] Robert Stevens DPM [facility] [place] [address] [place] [address] 12/13/2022 11:23:24 12/13/2022 12:06:13 Plantar fasciitis of left foot 9561916780 8750942 M72.2 90% improvedCo ntinue conservati ve therapyCon tinue stretching and icingconti nue custom orthoticsR ecommend more supportive shoe gear such as new balance, has sketchers ollow-up prn [id number] Elizabeth Styles MD [facility] Primary Care [address] [place] [address] 02/22/2023 13:51:58 02/22/2023 14:19:02 Essential hypertension 40178053 I10 in good control Prediabetes 958113474 R7 3.03 uncertain controlche ck labs Dizziness 054668507 R42 R53.83 stay hydratedta ke care with position changesche ck labsif normal, consider adding bupropion [id number] Elizabeth Styles MD [facility] Primary Care [address] [place] [address] 10/18/2023 08:29:27 10/18/2023 09:22:19 Essential hypertension 94125765 I10 in good control Prediabetes 465381654 R7 3.03 a1c is 5.8, improved but has had weight gainrechec k labs Neuropathy 364692991 G62 .9 check labs Dietary ma nagement surveillance 480611416 Z71.3 restart phentermin eDiscussed healthy diet/exerc iseReviewe d potential med s/e, d/c and be seen if any chest pain, sobreturn in 4 weeks for BP check [id number] Elizabeth Styles MD [facility] Primary Care [address] [place] [address] 11/15/2023 14:25:56 11/15/2023 16:12:45 [id number] Elizabeth Styles MD [facility] Primary Care [address] [place] [address] 11/24/2023 14:59:09 11/24/2023 16:19:45 [id number] Elizabeth Styles MD [facility] Primary Care [address] [place] [address] 11/28/2023 14:58:19 12/20/2023 15:31:10 [id number] PONCHO Morgan [facility] Primary Care [address] [place] [address] 01/17/2024 10:48:02 01/17/2024 12:33:27 Paresthesia of upper limb 74395069 R20.2 numbness/t ingling noted to upper/lowe r extrem Essential hypertension 15496971 I10 bp 146/98, 75 some monahan Palpitations 25328441 R0 0.2 palpitatio ns noted a couple times/week , some heart fluttering currently taking phentermin e, encouraged to hold off for the time being to see if symptoms resolveshe declines holter monitor right now [id number] PONCHO Morgan [facility] Primary Care [address] [place] [address] 02/03/2024 16:02:13 02/09/2024 04:02:17 [id number] PONCHO Huber [facility] Primary Care [address] [place] [address] 02/28/2024 10:55:47 02/28/2024 11:48:02 Tachycardia 6766505 R00.0 Will change Metoprolol as listed below and follow up in 1-2 weeks. Hypertensive disorder 38 702402 I10 Discussed monitoring BP at home and keeping a log.Patien t to contact office in 1 week with readings, if patient is unable to obtain BP cuff for home use she will come in for BP check.Disc ussed DASH diet and routine exercise. [id number] PONCHO Huber [facility] Primary Care [address] [place] [address] 05/02/2024 16:27:52 05/02/2024 17:27:50 History and physical examination, pre-employment 391705134 Z02.1 Will check labs as listed below.Teta nus and Tb are up to date. Hypertensive disorder 38 873719 I10 138/80.Doi ng well on current medication regimen.De nies headaches, vision changes.Di scussed DASH diet and routine exercise. Body mass index 40+ - severely obese 361900251 Z68.41 43.3Discus sed healthy diet and routine exercise. [id number] PONCHO Huber [facility] Primary Care [facility] [address] [facility] [address] [place] [address] 07/02/2024 15:46:25 07/02/2024 16:29:40 Ulcer of nose 08870661 J34.0 Will treat as listed below, patient will follow up as needed. Essential hypertension 72657865 I10 120/80.Doi ng well on current medication s, will refill as needed.Dis cussed DASH diet and routine exercise. Neuropathy 253851429 G62 .9 Will increase to 100mg QAM and then tk 2 cs po QPM, patient will contact office in a couple weeks with update. Active or passive immunization 941050394 Z23 1st dose administer ed [id number] dose due in at least 28 days [id number] PONCHO Huber [facility] Primary Care [facility] [address] [facility] [address] [place] [address] 07/31/2024 08:40:03 07/31/2024 09:11:50 Health Concerns Section Related Observation LastModified by Organization Detai ls LastModified Time None Recorded Concern Status LastModified by Organization Details LastModified Time None Recorded Advance Directives Directive None Recorded Payers Encounter Date Sequence Insurance Name Policy Number Policy Valle Covered Member ID Valle Member ID Guarantor Name 02/03/2024 1 [facility] ILSUHAS Galloway [id number] Lacie Galloway 02/28/2024 1 [facility] [employer] Lacie Galloway [id number] Lacie Galloway 05/02/2024 1 [facility] [employer] Lacie Galloway [id number] Lacie Galloway 07/02/2024 1 [employer] - OPEN ACCESS [id number] Lacie Galloway [id number] Lacie Galloway 07/31/2024 1 [employer] OPEN ACCESS [id number] Lacie Galloway [id number] Lacie Galloway Notes Date Note Type Note Provider Name [...] not having a BP cuff. Patient denies MONAHAN and dizziness. Patient denies all other medical concerns at this time. PONCHO Huber [address], [place], [address], [facility] 02/28/2024 11:39:28 05/02/2024 text/html Patient is a 49 year old female that presents to the office for follow up and pre-employment physical. 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 Patient denies all other medical concerns at this time including chest pain and shortness of breath, nausea vomiting and diarrhea. PONCHO Huber [address], [place], [address], [facility] 05/03/2024 10:31:04 07/02/2024 text/html Patient is a [...] Flu and Covid shot, will update at [employer]. PONCHO Huber [address], [employer], [place], [address], [facility] 07/02/2024 16:53:52 OBGyn Episode No OBEpisode recorded.
--- OUTSIDE RECORDS SUMMARY | 2024-09-14 08:17 | XMS_ITS | Clinical Summary ---
Author Organization [facility] Address [address] [place] [id number] Care Team Providers Care Visiting Professor Name Role Phone Christian Marquez NP Primary Care Provider [phone] Allergies Active Allergy Reactions Criticality Noted Date [...] 05/13/2022, 06/03/2020, Additional history exists PHQ-2 (Physician [place]) 07/25/2024 04/03/2024 PHQ-2 (Physician [place]) 04/03/2025 04/03/2024 DTaP, Tdap and Td Vaccines [...] patient's age to complete this topic Insurance [facility] Care Teams Visiting Professor Relationship Specialty Start Date End Date Christian Marquez NP [address] [place] [address] PCP - General Nurse Practitioner Family 01/30/24
--- NOTE | 2024-09-14 09:43 | ED_ITS ---
HPI - Abdominal Pain General Chief Complaint: Abdominal Pain Stated Complaint: lower abd. pain and flank pain Time Seen by Provider: 09/14/24 09:04 Source: patient and old records reviewed Mode of arrival: ambulatory Limitations: no limitations History of Present Illness HPI narrative: Patient is a 49-year-old female who presents the ED with report of left lower back pain. Patient reports she was seen in the ED here on 09/10 for lower abdominal pain. Had negative w/u with CT and pelvic US and was discharged home. States over the past couple days, has been having increased pain in left lower back. Worse with any type of movement. Denies injury or strenuous activity. Denies bowel or bladder incontinence, weakness, saddle anesthesia, current abdominal pain, dysuria, hematuria. Has not taken anything for pain. Related Data Allergies Allergy/AdvReac Type Severity Reaction Status Date / Time clindamycin Allergy Hives Verified 09/10/24 12:38 Review of Systems 2 Review of Systems: All systems reviewed & are unremarkable except as noted in HPI. All systems reviewed & are unremarkable except as noted in HPI and below PMFSH Family History Family History Father Hypertension Family history of heart disease in male family member before age 55 Mother Hypertension Grandparent Hypertension Malignant neoplasm of prostate Family history of malignant neoplasm of breast Diabetes mellitus Sibling Family history of seizure disorder Social History Social History Smoking status: Never smoker Alcohol intake: current Exam 2 Narrative: GENERAL: Well appearing morbidly obese with BMI of 41.7, non-toxic, in no acute distress. HEAD: Normocephalic, atraumatic. RESPIRATORY: Airway patent, respirations nonlabored. Clear to auscultation bilaterally, no rales, rhonchi, wheezing. CARDIOVASCULAR: Regular rate and rhythm without murmurs, rubs, or gallops. ABDOMINAL: Soft, no significant focal tenderness throughout abdomen, nondistended. Normoactive BS. MUSCULOSKELETAL: Moves all extremities. No gross deformities. Tenderness to palpation left lumbosacral region. No midline spinal tenderness. No palpable bony deformities. Sensation intact. SKIN: Warm, dry, normal color. NEURO: A&O X3. Speech clear. Cranial nerves II-XII grossly intact. Steady gait. No ataxic movements. No focal deficits. PSYCHIATRIC: Appropriate mood and affect. Normal interaction. Course Vital Signs Vital signs: Vital Signs Temperature 97.2 F L 09/14/24 08:15 Pulse Rate 98 09/14/24 08:15 Respiratory Rate 16 09/14/24 08:15 Blood Pressure 163/88 H 09/14/24 08:15 Pulse Oximetry 97 09/14/24 08:15 Temperature 97.9 F 09/14/24 12:08 Pulse Rate 54 L 09/14/24 11:48 Respiratory Rate 19 09/14/24 11:48 Blood Pressure 130/84 09/14/24 11:48 Pulse Oximetry 98 09/14/24 11:48 MDM - Abdominal Pain MDM Narrative Medical decision making narrative: Patient presented to ED with several day history of left lower back pain. Recently seen in the ED for abdominal pain with negative workup. Vital signs are stable upon arrival today. Patient is neurovascularly intact. No focal deficits. No evidence of cord compression or cauda equina. No red flag symptoms. She has not tried anything for pain. Laboratory studies are unremarkable. No leukocytosis or anemia. CMP with K 3.3, replaced orally. Stable kidney function. UA with possible infection, though few squamous cells are noted. Sent for culture. Discussed this with patient. She denies any recent urinary complaints. Discussed starting antibiotic treatment now versus waiting for culture results. Discussed possibility that this could be contributing to her symptoms. Patient would like to start antibiotics now. Feel this is appropriate. Given 1st dose of Keflex in the ED. Urine was negative. CT of abdomen/pelvis/lumbar spine was obtained and unremarkable. No acute intra-abdominal findings. Mild lumbar spondylosis changes. Chronic lung findings, stable since 1015. Discussed lab and imaging findings with patient, overall reassuring workup. She is feeling improved with supportive therapy. Discussed likelihood of musculoskeletal etiology, muscular/lumbar strain. Also again discussed possibility of UTI contributing to sx's. Will discharge with short course of muscle relaxers for home use. Recommended RICE therapy, f/u with PCP. Discussed strict return precautions. Patient in agreement with plan. Discharged in stable condition. Medical Records Attestation: I reviewed the patient's medical records. Lab Data Attestation: I reviewed the patient's lab results. 09/14/24 09:55 09/14/24 09:55 Labs: Lab Results 09/14/24 09/14/24 09/14/24 Range/Units 09:55 10:02 10:04 WBC 6.8 (4.5-10.0) K/mm3 RBC 4.71 (4.2-5.4) M/mm3 Hgb 13.6 (12.0-15.0) g/dL Hct 41.1 (37.0-47.0) % MCV 87.3 (80-100) fl MCH 28.9 (26-34) pg MCHC 33.1 (32-36) g/dl RDW 13.8 (11.5-14.5) % Plt Count 267 (150-375) k/mm3 MPV 9.9 (7.4-10.4) fl Immature Gran % (Auto) 0.4 (0-0.5) % Neut % (Auto) 67.6 (45.5-73.1) % Lymph % (Auto) 25.1 (18.3-44.2) % [place] % (Auto) 5.9 (2.6-8.5) % Eos % (Auto) 0.6 (0-4.4) % Baso % (Auto) 0.4 (0.2-1.2) % Lymph # (Auto) 1.70 (0.9-3.2) K/mm3 [place] # (Auto) 0.4 (0.1-0.6) K/mm3 Eos # (Auto) 0.0 (0-0.3) K/mm3 Baso # (Auto) 0.0 (0.0-0.1) K/mm3 Abs Immat Gran (auto) 0.03 (0.00-0.031) K/mm3 Absolute Neuts (auto) 4.6 (1.3-6.7) K/mm3 Absolute Nucleated RBC 0.000 (0.0-0.012) K/mm3 Nucleated RBC % 0.0 (0.0-0.2) % Sodium 140 (137-145) mmol/L Potassium 3.3 L (3.4-5.0) mmol/L Chloride 103 (98-107) mmol/L Carbon Dioxide 27 (22-30) mmol/L Anion Gap 10 (4-12) mmol/L BUN 7 D (7-17) mg/dL Creatinine 0.61 L (0.7-1.0) mg/dL Estim Creat Clear Calc 119 ml/min Estimated GFR > 60 (59 - ) Glucose 111 H (65-110) mg/dL Calcium 8.9 (8.4-10.2) mg/dL Total Bilirubin 0.5 (0.2-1.3) mg/dL AST 22 (14-36) U/L ALT 20 (6-35) U/L Alkaline Phosphatase 86 (38-126) U/L Total Protein 7.0 (6.3-8.2) g/dL Albumin 3.9 (3.5-5.1) g/dL Urine Color Dark yellow (Yellow) Urine Appearance Cloudy H (Clear) Urine pH 6.0 (5.0-9.0) Ur Specific [place] 1.021 (1.001-1.035) Urine Protein Trace (Negative) mg/dL Urine Glucose (UA) Negative (Negative) mg/dL Urine Ketones Negative (Negative) mg/dL Ur Blood (Man) Negative (Negative) Urine Nitrate Negative (Negative) Urine Bilirubin Negative (Negative) Urine Urobilinogen 0.2 (<2.0) mg/dL Leukocyte Esterase Rfl 2+ H (Negative) YASSINE/UL Urine RBC 0-2 (0-2) /hpf Urine WBC 21-50 H (0-3) /hpf Ur Squamous Epith Cells Few (Few) /hpf Urine Bacteria 3+ H /hpf Urine Casts 0-2 POC Urine HCG, Qual Negative (Negative) Imaging Data Attestation: I personally reviewed and interpreted this imaging study as follows: Radiologist's impression: ITS Impressions Miscellaneous CT Procedure 09/14/24 10:36 IMPRESSION: 1. No acute intra-abdominal/pelvic process. 2. Moderate lower thoracic and mild lumbar spondylosis with no acute osseous abnormality. 3. 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 Differential would include sequestration and congenital cystic adenomatoid malformation. Discharge Plan Discharge Clinical Impression: Abnormal finding on urinalysis Acute left-sided back pain Qualifiers: Back pain location: low back pain Sciatica presence: without sciatica Qualified Code(s): M54.50 - Low back pain, unspecified Patient Disposition: Home, Self-Care Condition: Stable Instructions: Antibiotic Form, Urinary Tract Infection in Women (ED), Low Back Strain (ED), Musculoskeletal Pain (ED), Flank Pain (ED) Additional Instructions: Your urine showed signs of possible infection. Take antibiotics as prescribed. Follow-up with your primary care doctor for urine culture results. Continue Tylenol and ibuprofen as needed for pain, ice to areas of pain, utilize muscle relaxers as needed prescribed. Return to the ED if you experience worsening or severe pain, unable to keep down food or drink, blood in urine, difficulty urinating, fevers, or any other symptoms of concern. Patient Language: Tristanian Prescriptions: New cephalexin 500 mg capsule 500 mg PO Q6H 5 Days Qty: 20 0RF cyclobenzaprine 5 mg tablet 5 mg PO TID PRN (Reason: muscle spasm) Qty: 5 0RF No Action ondansetron 4 mg tablet,disintegrating 4 mg PO Q8H PRN (Reason: nausea and vomiting) Qty: 14 0RF norethindrone-e.estradiol-iron [08/13 (28)] 1 mg-20 mcg (21)/75 mg (7) tablet 1 tablet PO DAILY Qty: 28 2RF Follow-up/Referrals: Jensen,Elizabeth Pandya MD [Primary Care Provider] - Time of Disposition: 11:34
--- OUTSIDE RECORDS SUMMARY | 2024-09-14 09:54 | XMS_ITS | Clinical Summary ---
Author Organization [facility] Address [address] [place] [address] Care Team Providers Care Grades 9 Through 12 Teacher Name Role Phone Christian Marquez NP Primary Care Provider [phone] Allergies Active Allergy Reactions Criticality Noted Date [...] 05/13/2022, 06/03/2020, Additional history exists PHQ-2 (Physician [place]) 07/25/2024 04/03/2024 PHQ-2 (Physician [place]) 04/03/2025 04/03/2024 DTaP, Tdap and Td Vaccines [...] patient's age to complete this topic Insurance [facility] Care Teams Grades 9 Through 12 Teacher Relationship Specialty Start Date End Date Christian Marquez NP [address] [place] [address] PCP - General Nurse Practitioner Family 01/30/24
[2024-09-14 10:02] LABS: Basophils Percent Auto 0.4 % (0.2-1.2); Eosinophils Percent Auto 0.6 % (0-4.4); Hematocrit 41.1 % (37.0-47.0); Hemoglobin 13.6 g/dL (12.0-15.0); Immature Granulocyte Absolute 0.03 K/mm3 (0.00-0.031); Immature Granulocyte Percent A 0.4 % (0-0.5); Lymphocytes Percent Auto 25.1 % (18.3-44.2); Mean Corpuscular HGB Conc 33.1 g/dl (32-36); Mean Corpuscular Hemoglobin 28.9 pg (26-34); Mean Corpuscular Volume 87.3 fl (80-100); Mean Platelet Volume 9.9 fl (7.4-10.4); Monocytes Absolute Auto 0.4 K/mm3 (0.1-0.6); Monocytes Percent Auto 5.9 % (2.6-8.5); Neutrophils Absolute Auto 4.6 K/mm3 (1.3-6.7); Neutrophils Percent Auto 67.6 % (45.5-73.1); Platelet Count Result 267 k/mm3 (150-375); Red Blood Count 4.71 M/mm3 (4.2-5.4); Red Cell Distribution Width 13.8 % (11.5-14.5); White Blood Count 6.8 K/mm3 (4.5-10.0)
[2024-09-14 10:05] LABS: BEDSIDEPREGUCG Negative (Negative)
[2024-09-14 10:13] LABS: Alanine Aminotransferase 20 U/L (6-35); Albumin Level 3.9 g/dL (3.5-5.1); Alkaline Phosphatase 86 U/L (38-126); Anion Gap 10 mmol/L (4-12); Aspartate Amino Transferase 22 U/L (14-36); Bilirubin,Total 0.5 mg/dL (0.2-1.3); Blood Urea Nitrogen 7 mg/dL (7-17); Calcium 8.9 mg/dL (8.4-10.2); Carbon Dioxide 27 mmol/L (22-30); Chloride 103 mmol/L (98-107); Estimated CRCL calculation 119 ml/min; Estimated Glomerular Filt Rate > 60; Glucose 111 mg/dL (65-110); Potassium 3.3 mmol/L (3.4-5.0); Sodium 140 mmol/L (137-145)
[2024-09-14 10:17] LABS: Add Urine Microscopic? YES; Appearance Urine Cloudy (Clear); Bacteria Urine 3+ /hpf; Bilirubin Urine Negative (Negative); Blood Urine Negative (Negative); Color Urine Dark Yellow (Yellow); Glucose Urine UA Negative (Negative); Ketones Urine Negative (Negative); Leukocyte Esterase Ur 2+ LEU/UL (Negative); Nitrate Urine Negative (Negative); Non Pathogenic Casts 0-2; Protein Urine Trace mg/dL (Negative); RBC Urine 0-2 /hpf (0-2); Specific Grav Ur 1.021 (1.001-1.035); Squamous Epithelial Cell Urine Few /hpf (Few); Urobilinogen Urine 0.2 mg/dL (<2.0); WBC Urine 21-50 /hpf (0-3)
[2024-09-14] MEDS: ACETAMINOPHEN 500 MG TABLET 1000 MG PO (10:49)
[2024-09-14] MEDS: POTASSIUM CHLORIDE 20 MEQ ER TABLET PO (10:49)
[2024-09-14 11:06] VITALS: BP 136/84; PULSE 56; RESP 16; O2SAT 98
[2024-09-14] MEDS: KETOROLAC (*BKC) 60 MG/2 ML VIAL IM (11:47)
[2024-09-14 11:48] VITALS: BP 130/84; PULSE 54; RESP 19; O2SAT 98
[2024-09-14] MEDS: CEPHALEXIN 500 MG CAPSULE PO (11:48)
[2024-09-14 12:08] VITALS: TEMP 36.6
== END 2024-09-14 12:10 | disposition home or self-care (01) ==
PROVIDERS: Emergency Provider Physician Assistant; PCP Family Medicine
DX: M54.50 Low back pain, unspecified (principal); R82.998 Other abnormal findings in urine; J98.4 Other disorders of lung; M47.816 Spondylosis without myelopathy or radiculopathy, lumbar region; M47.814 Spondylosis without myelopathy or radiculopathy, thoracic region
CPT/HCPCS: 36415; 72131; 74176; 80053; 81001; 81025; 85025; 87086; 96372; 99284; A9270; J1885

== ENCOUNTER 2025-04-08 01:16 | Day surgery (SDC) | payer OTHER, SELFPAY ==
--- OUTSIDE RECORDS SUMMARY | 2025-04-08 01:19 | XMS_ITS | Clinical Summary ---
Author Organization [facility] Address [address] [place] [address] Care Team Providers Care Audioprosthologist Name Role Phone Christian Marquez NP Primary Care Provider [phone] Allergies Active Allergy Reactions Criticality Noted Date [...] 10:03 AM CDT Height 165.1 cm (5' 5) 04/03/2024 10:0 3 AM CDT Body Mass Index 41.9 04/03/2024 10:03 AM CDT Plan of Treatment Health Maintenance Due Date Last Done Comments Cervical Cancer Screening Pa p Smear (Age 30 to 64) Every 3 Years 1975 Colorectal Cancer Screening Colonoscopy (10 Years) 1975 Annual Physical 1978 Hepatitis C 1993 Hepatitis B Vaccines (1 of 3 - 19+ 3-dose series) 1994 Cervical Cancer Screening Pa p with HPV Testing (Age 30 to 64) Every 5 Years 2005 Cervical Cancer Screening wi th HPV 2005 Mammogram Screening 2015 PHQ-2 (Physician [place]) 07/25/2024 04/03/2024 COVID-19 Vaccine ( - 2024-2 6 season) 2025 10/13/2021, 05/14/2021, 04/23/2021 DTaP, Tdap and Td Vaccines ( 2 - Td or Tdap) 11/27/2033 11/28/2023 Meningococcal B Vaccine Aged Out No l onger eligible based on patient's age to complete this topic Meningococcal Vaccine Aged Out No yuliana adrianne eligible based on patient's age to complete this topic Pneumococcal Vaccine: Pediatrics (0 to 5 Years) and At-Risk Patients (6 to 49 Years) Aged Out No longer eligible b ased on patient's age to complete this topic RSV Immunizations Under 20 Months Aged Out No longer eligible b ased on patient's age to complete this topic Insurance [facility] Care Teams Audioprosthologist Relationship Specialty Start Date End Date Christian Marquez NP [address] [place] [id number] PCP - General Nurse Practitioner Family 01/30/24
--- NOTE | 2025-04-08 07:03 | WPDHPUPDATE1 ---
History and Physical Update Update Date/Time: 04/08/25 07:03 History and Physical has been reviewed, including an updated exam of the patient. There are NO changes in the patient's condition. Risks, benefits, and alternatives have been discussed and questions answered. Patient agrees to proceed with hysteroscopy, D&C, with polypectomy.
[2025-04-08 08:41] VITALS: BMI 41.6
[2025-04-08] MEDS: ACETAMINOPHEN 500 MG TABLET 1000 MG PO (09:30)
[2025-04-08] MEDS: LACTATED RINGERS 1,000 ML 30 ML IV CONT (09:30)
--- NOTE | 2025-04-08 09:58 | WPDANESEPPF ---
Anes - Initial Pre Proc Eval Procedure: Operation Date: 04/08/25 10:45 Proposed Procedures p Hysteroscopy Dilation and Curettage with Polypectomy - Reyna Kendall MD Date/Time: 04/08/25 09:58 Surgeon: Reyna Kendall MD Pre Op Diagnosis: Endocervical polyp Patient Data Age: 49 Gender: F Height: 1.65 m Weight: 113.6 kg Allergies Allergy/AdvReac Type Severity Reaction Status Date / Time clindamycin Allergy Hives Verified 04/08/25 09:39 Home Medications ?Medication ?Instructions ?Recorded ?Confirmed ?Type cholecalciferol (vitamin D3) 50 50 mcg PO DAILY 03/13/25 04/08/25 History mcg (2,000 unit) capsule gabapentin 100 mg capsule 300 mg PO HS 03/13/25 04/08/25 History losartan 100 1 tablet PO DAILY 03/13/25 04/08/25 History mg-hydrochlorothiazide 25 mg tablet mecobalamin (vitamin B12) 1,000 1,000 mcg sublingual DAILY 03/13/25 04/08/25 History mcg disintegrating tablet,sublingual metoprolol tartrate 50 mg tablet 50 mg PO Q12H 03/13/25 04/08/25 History phentermine 37.5 mg capsule 37.5 mg PO DAILY 03/13/25 04/08/25 History sertraline 100 mg tablet 150 mg PO DAILY 03/13/25 04/08/25 History Patient hx anesthesia problems: none Family hx anesthesia problems: none Results Review: All pre-operative results and documents have been reviewed as part of the pre-operative evaluation. [facility] Past Medical History Medical History Hypertension Anxiety Allergies Surgical History Surgical History Hx of tonsillectomy adenoids/tubes H/O wisdom tooth extraction H/O mastoidectomy History of cholecystectomy H/O hand surgery trigger finger Family History Family History Father Hypertension Family history of heart disease in male family member before age 55 Diabetes mellitus Mother Hypertension Heart disease Diabetes mellitus Grandparent Hypertension Malignant neoplasm of prostate Family history of malignant neoplasm of breast Diabetes mellitus Breast cancer maternal grandmother Skin cancer Asthma Cerebrovascular accident Sibling Family history of seizure disorder Social History Social History Smoking status: Never smoker Alcohol intake: never Substance use: never Substance use type: does not use Do You Feel Safe in your Home?: Yes Lack of Transportation: No Lack of Food: Never True Current Housing: I Have Housing Concerned About Future Housing: No Difficulty Paying Gas/Electric Bills: YES Difficulty Paying for Meds: YES Currently Unemployed: YES Education: Associate Degree Difficulty w/ Childcare or Family Care: No Living arrangements: with family Occupation/Education: occupation Spiritual care concerns: No Anes - Eval Final PreProcedure Day of Procedure 04/08/25 09:58 Patient weight: morbidly obese Heart: regular rate and rhythm Lungs: clear to auscultation Airway: Mallampati scale class II Neurological: alert and oriented Last oral intake: >/= 8 hours ASA classification: III Emergent: no Anesthetic plan: proceed Anesthesia type and monitoring: general GIVS and standard monitoring Results Review: All pre-operative results and documents have been reviewed as part of the pre-operative evaluation. Informed Consent: The patient's anesthetic plan and its attendant risks and benefits were discussed with the patient/family/POA. Questions were solicited and answers provided to the satisfaction of the patient/family/POA.
[2025-04-08 10:14] VITALS: BP 169/92; PULSE 72; TEMP 36.3; O2SAT 99; BMI 41.5
[2025-04-08 10:19] LABS: BEDSIDEPREGUCG Negative (Negative)
--- NOTE | 2025-04-08 10:50 | S_PTH ---
PATIENT: Lacie Galloway LOC: [facility] U#:[id number] AGE/SX: 49/F ROOM: RE04/08/[address]: Reyna Kendall MD : 1975 BED: DIS: 04/08/2025 SPEC #: [id number] RECD: 04/08/25 11:39 STATUS: JUAREZ REQ #: [id number] BO: 04/08/25 10:[address]: Reyna Kendall DEPT: [facility] Surgical RECD BY: Mary Lees ENTERED: 04/08/25 11:40 SP TYPE: Surgical OTHR DR: COLLAR WORKER PHYSICIAN Tissues: A - Polyp B - Endometrial Curettings Procedures: Hematoxylin and Eosin Stain Gross and Microscopic Level 4
--- NOTE | 2025-04-08 11:00 | W.PM.PROC2 ---
Procedure Note - Detailed Date of Procedure 04/08/25 Pre-op Diagnosis Endocervical polyp AUB Post-op Diagnosis Same Procedure Performed Hysteroscopy, D&C, polypectomy Surgeon Reyna Kendall MD Anesthesia MAC Findings Endocervical polyp; ~1-2cm in size. Normal appearing cavity with thickened endometrium. Bilateral tubal ostia visualized. Good hemostasis at end of case. Fluid deficit: 80cc. Description of Procedure Lacie was taken to the operating room where she was placed under sedation without complications. She was then prepped and draped in the usual sterile fashion in the dorsal lithotomy position with her legs in low Jeremiah stirrups. A time-out was performed and no perioperative antibiotics were indicated. A bivalve speculum was placed within the vagina where the cervix was easily identified. The anterior lip of the cervix was grasped with a single-tooth tenaculum. The endocervical polyp was grasped for a polyp forceps and twisted amongst it's stalk and removed. The uterus was sounded to 9cm. The cervix was then serially dilated to allow for the hysteroscope. The hysteroscope was advanced into the uterine cavity with the above findings noted. A curettage was then performed until a good uterine cry was felt throughout the uterus. The hysteroscope was advanced back into the uterine cavity and all areas had been sampled. Good hemostasis was noted. All instruments were removed from the vagina. Sponge, lap, instrument, and needle counts were correct at the end of the procedure. Patient was awoken from anesthesia and taken to recovery with plans of same-day discharge home. Estimated Blood Loss 10 IV Fluids 900 Pathology Yes (endocervical polyp, and endometrial curettings) Complications No immediate complications Condition Stable Disposition Same day [facility] Billing Surgery - Charge Forward: Surgery Billing
[2025-04-08 11:02] VITALS: BP 149/81; PULSE 65; RESP 18; O2SAT 98
[2025-04-08 11:30] VITALS: BP 139/62; PULSE 60
[2025-04-08 11:45] VITALS: BP 149/74; PULSE 55
== END 2025-04-08 11:59 | disposition home or self-care (01) ==
PROVIDERS: Visit Provider Obstetrics & Gynecology
PROC: 0U5B8ZZ Destruction of Endometrium, Via Natural or Artificial Opening Endoscopic (ICD-10-PCS; CPT 58563; principal; 2025-04-08 10:45)
DX: N84.1 Polyp of cervix uteri (principal); R93.89 Abnormal findings on diagnostic imaging of other specified body structures; I10 Essential (primary) hypertension; F41.9 Anxiety disorder, unspecified; E66.01 Morbid (severe) obesity due to excess calories; Z68.41 Body mass index [BMI] 40.0-44.9, adult; Z98.890 Other specified postprocedural states; Z90.49 Acquired absence of other specified parts of digestive tract; Z80.42 Family history of malignant neoplasm of prostate; Z80.3 Family history of malignant neoplasm of breast; Z84.0 Family history of diseases of the skin and subcutaneous tissue; Z82.49 Family history of ischemic heart disease and other diseases of the circulatory system
CPT/HCPCS: 58558; 88305; A9270; J1885; J2003; J2250; J2704; J3010; J7120